=== PATIENT | male | born 1985 | race Caucasian/White ===

== ENCOUNTER 2020-03-29 09:20 | Outpatient (CLI) | payer OTHER, MEDICAID, SELFPAY ==
--- NOTE | 2020-03-29 09:41 | USCV_ITS ---
Stress Echo Marty Stanton Age: 34 Gender: M : 1985 Exam Date: 03/29/2020 11:01 Ordering Phys: Johnny Mckeon MD Technologist: Robi Vitale [place]am [place] [facility] [place]: Chest Pain Rhythm: Sinus Patient History: HTN Cardiac Medications: Angiotensin II receptor víctor Medications in past 24 hours: NONE Contrast: Definity Stress Results Protocol: Alonzo Total dose(mL): Exercise Duration (min:sec): 10:02 METS: 13.5 Resting HR: 66 Resting BP: 137 / 76 Peak HR: 180 Peak BP: 222 / 100 Max Predicted HR: 184 98 % Max Predicted HR Target HR: 156 Double Product: [id number] Stress Summary: The patient's target heart rate was achieved The patient exhibited a hypertensive response with stress BP Response: Abnormal increase in BP during/after stress Reason for Termination: Test terminated after reaching target heart rate (85% max predicted) Cardiac Symptoms: Chest pain, Short of Breath ECG Analysis Resting ECG: Stress ECG: Arrhythmia: MEASUREMENTS (Male/Female) Normal Values FINDINGS Baseline: Normal left ventricle size and function. Estimated ejection fraction 60%. No wall motion abnormality at the rest noted. At peak exercise level:: Left ventricle ejection fraction augmented at peak exercise level without significant wall motion abnormality Recovery: Uneventful, no wall motion abnormality noted. CONCLUSIONS Echocardiographic portion of the stress test is not suggestive of ischemia. EKG segment will be documented separately. Joby Ambrsoio MD (Electronically Signed) Final Date: 30 March 2020 18:10 S
[2020-03-29 09:53] VITALS: BMI 30.1
--- NOTE | 2020-03-29 09:53 | ECG_ITS ---
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 Baseline heart rate was 66 beats per minute. Baseline blood pressure was 137/76 millimeters of mercury. Target heart rate was 184 beats per minute. Maximum heart rate achieved was 180, which was 97 % of the target heart rate. Maximum blood pressure was 222/100 millimeters of mercury. Total exercise time was 10 minutes 2 seconds. Maximum METs achieved was 13.5, maximum VO2 was 47.3. The reason for ending the test was maximum effort achieved. The patient complained of shortness of during the stress test, which then resolved at the end of the test. ELECTROCARDIOGRAM: BASELINE: Sinus rhythm, normal axis, no significant ST-T changes at the baseline noted. EXERCISE: At the peak exercise level, no significant ST-T changes suggestive of ischemia noted. RECOVERY: During the recovery period, heart rate dropped appropriately. No significant ST-T changes in the recovery suggestive of ischemia noted. CONCLUSION: 1. Exercise capacity good. 2. Heart rate response was appropriate. 3. Blood pressure response was hypertensive. 4. Symptoms not suggestive of ischemia. 5. Electrocardiogram portion of the stress test was not suggestive of ischemia. Electronically Signed On 03-31-2020 18:02:39 STEAMFITTER SUPERVISOR by TYRA WILCOX [id number]
[2020-03-29 11:46] VITALS: BP 136/84; PULSE 113
--- NOTE | 2020-03-29 12:16 | PFTS_ITS ---
Date of Study:03/29/20 Date of Dictation: MECHANICS: Forced vital capacity (FVC) is normal. Forced expiratory volume in one second (FEV1) is normal. FEV1/FVC is normal. FLOW VOLUME LOOP: Normal. LUNG VOLUMES: Total lung capacity (TLC) is normal. Residual volume (RV) is mildly reduced. DIFFUSING CAPACITY FOR CARBON MONOXIDE: Normal. INTERPRETATION: The prebronchodilator spirometry is normal. No postbronchodilator spirometry was performed. Lung volumes revealed mild reduction in residual volume which could be nonspecific or early finding in interstitial lung disease. However, this would be unlikely as the gas exchange is completely normal. Gas exchange (DLCO) is normal. MTDD
== END 2020-03-29 09:21 | disposition home or self-care (01) ==
PROVIDERS: PCP Family Medicine; Visit Provider Internal Medicine Pulmonary Disease
DX: R07.9 Chest pain, unspecified (principal); I10 Essential (primary) hypertension
CPT/HCPCS: 93017; 93350; 94010; 94726; 94729

== ENCOUNTER 2020-04-12 20:00 | Outpatient (CLI) | payer OTHER, MEDICAID, SELFPAY | END 2020-04-12 20:01 | disposition home or self-care (01) | LOC: SLEEP 04-13 09:37 | PROVIDERS: PCP Family Medicine; Visit Provider Internal Medicine Pulmonary Disease | DX: G47.33 Obstructive sleep apnea (adult) (pediatric) (principal) | CPT/HCPCS: 95810 ==

== ENCOUNTER 2020-05-03 16:23 | Emergency (ER) | payer BC, MEDICAID, SELFPAY ==
[2020-05-03 16:24] VITALS: BP 133/97; PULSE 100; RESP 18; TEMP 37.4; O2SAT 97; BMI 30.5
[2020-05-03 16:36] VITALS: O2SAT 95
--- NOTE | 2020-05-03 16:41 | ECG_ITS ---
[facility] Test Date: 2020-05-03 Pat Name: Marty Stanton Department: Room: Gender: Male Punch Hand: : 1985 Requested By: Daisy Daugherty I Order Number: [id number] Liseth MD: Key Bejarano M.D. Measurements Intervals [place] Rate: 85 P: 10 WI: 140 QRS: 21 QRSD: 110 T: 30 QT: 370 QTc: 441 Interpretive Statements SINUS RHYTHM INCOMPLETE RIGHT BUNDLE BRANCH BLOCK [90+ ms QRS DURATION, TERMINAL R IN V1/V2, 40+ ms S IN I/aVL/V4/V5/V6] No previous ECG available for comparison Electronically Signed On 05-03-2020 21:39:04 AT RISK SPECIALIST by Key Bejarano M.D. [id number]
--- NOTE | 2020-05-03 16:41 | XR_ITS ---
WS: [id number] Portable AP upright chest, 05/03/2020 Clinical Data: chest pain Comparison: None. Findings: No nodules, masses or effusions are seen. The heart is normal. The pulmonary vascularity is not increased. No pneumonia or pneumothorax is seen. XR/XR chest 1V portable [id number] Impression: Negative chest.
[2020-05-03 16:50] LABS: Basophils # 0.1 10^3/uL (0.0-0.1); Basophils % 0.7 %; Eosinophils # 0.3 10^3/uL (0.0-0.8); Eosinophils % 2.8 %; Hematocrit 46.3 % (42.0-52.0); Hemoglobin 16.2 g/dL (11.7-16.6); Lymphocytes # 2.7 10^3/uL (0.8-4.8); Lymphocytes % 26.7 %; Mean Corpuscular Hemoglobin 32.1 pg (28.0-34.0); Mean Corpuscular Volume 91.7 fL (80-94); Mean Platelet Volume 10.3 fL (7.4-10.4); Monocytes # 1.1 10^3/uL (0.2-0.9); Monocytes % 11.2 %; Neutrophils # 5.78 10^3/uL (1.8-7.7); Neutrophils % 58.1 %; Nucleated Red Blood Cells % 0 %; Platelet Count 299 10^3/cmm (130-400); Red Blood Count 5.05 10^6/uL (4.1-5.3); Red Cell Distribution Width 12.2 % (12.1-15.1)
[2020-05-03 17:15] LABS: Add Urine Microscopic? NO
[2020-05-03 17:19] LABS: INR 0.92 (0.8-1.2)
[2020-05-03 17:22] LABS: D Dimer <= 0.27 ug/mIFEU (0-0.59)
[2020-05-03 17:36] LABS: Bilirubin Urine Neg (Negative); Blood Urine Neg (Negative); Glucose Urine UA Norm (Normal); Ketones Urine Negative (Negative); Leukocyte Esterase Urine Negative (Negative); Nitrate Urine Negative (Negative); Protein Urine Neg (Negative); Urine Appearance Clear (CLEAR); Urine Color Yellow (Yellow); Urobilinogen Urine Norm (Negative); pH Urine 5 (5-7)
[2020-05-03 17:41] LABS: Troponin(5th) Baseline 6 ng/L (0-15)
[2020-05-03 17:45] LABS: Amphetamines Screen Urine Negative (Negative); Barbiturates Screen Urine Negative (Negative); Benzodiazepines Screen Urine Positive (Negative); Cocaine Screen Urine Negative (Negative); Opiate Screen Urine Negative (Negative); PCP Screen Urine Negative (Negative); THC Screen Urine Negative (Negative)
[2020-05-03 17:50] LABS: Alanine Aminotransferase 39 U/L (0-41); Albumin Level 4.4 g/dL (3.5-5.2); Alkaline Phosphatase 80 IU/L (40-130); Anion Gap 14.3 (5-19); Aspartate Amino Transferase 24 U/L (0-40); Blood Urea Nitrogen 7 mg/dL (6-20); Calcium 9.4 mg/dL (8.5-10.5); Carbon Dioxide 29 mmol/L (22-29); Chloride 100 mmol/L (98-107); Globulin 2.9 g/dL (1.3-4.6); Glucose 90 mg/dL (65-115); Lipase 22 U/L (13-60); NT Pro B Type Natriuretic Pept 24 pg/mL (0-125); Osmolality Calculated 288 mOsm/kg (285-295); Potassium 3.3 mmol/L (3.5-5.1); Sodium 140 mmol/L (136-145); Total Bilirubin 0.2 mg/dL (0.15-1.2); Total Protein 7.3 g/dL (6.6-8.7)
--- NOTE | 2020-05-03 18:22 | ED_ITS ---
HPI - SOB/Dyspnea General: Chief Complaint: Shortness of Breath/Dyspnea Stated Complaint: DIFF BREATHING, LETHARGIC Time Seen by Provider: 05/03/20 16:25 Source: patient and EMS Mode of arrival: ambulatory History of Present Illness: HPI Narrative: The patient is a 35 year old male with a history of COPD/asthma, MIKE, who presents to the ED with non specific complaints of generalized weakness, SOB (which appears chronic going through his chart). He says the symptoms have been ongoing for about 3 days. He has been progressively worsening and so he is here to be evaluated. MD elicited complaint: shortness of breath Pertinent past history: COPD Onset (ago): day(s) (3) Timing: constant Severity: moderate Exacerbating factors: nothing Relieving factors: nothing Associated symptoms: Deny abdominal pain, chest congestion, chest pain, cough, diaphoresis, dizziness, extremity pain, fever(s), hemoptysis, lightheadedness, myalgias, nausea, orthopnea, palpitations, paresthesias, polydipsia, polyuria, rash, sense of impending doom, syncope or vomiting Treatment prior to arrival: none Review of Systems General: Reports: 10 or more systems reviewed and unremarkable except in HPI and below Const: Denies: fever(s) or diaphoresis Eyes: Denies: change in vision or blurry vision ENMT: Denies: throat pain, enlarged tonsils, odynophagia, hoarseness, mouth pain or swelling of lips/tongue Card: Denies: chest pain, palpitations, lightheadedness, syncope or orthopnea Resp: Denies: hemoptysis or chest congestion GI: Denies: abdominal pain, nausea or vomiting : Denies: flank pain, dysuria, urinary frequency, urinary urgency or urinary hesitancy Musc: Denies: extremity pain Skin/Breast: Denies: rash, pruritus or erythema Neuro: Denies: dizziness Endo: Denies: polyuria or polydipsia PFSH ED PFSH: Social History Smoking and tobacco status: former smoker Quit status (tobacco): has quit using tobacco Year quit tobacco: dec 30, 2013 Former quit date comment: [id number] Second hand smoke exposure: Yes Smoking risk assessment/counseling performed?: No Alcohol intake: current Alcohol intake frequency: holidays/special occasions only Desire information about alcohol rehabilitation?: No Counseling given: No Lives independently: Yes Household members: spouse Housing: House Marital status: service: No Current occupational status: unemployed History of recent travel: No Current gender identity: Male Physical Exam Const: COMMON NORMALS: no acute distress, average body habitus, patient oriented x3, no limitations, healthy appearing, alert and well nourished HENMT: COMMON NORMALS: normocephalic, atraumatic and moist oral mucous membranes HEAD & SCALP: normocephalic and atraumatic Neck/C-Spine: COMMON NORMALS: no meningeal signs and no JVD Resp: COMMON NORMALS: normal respiratory effort, No retractions, No use of accessory muscles, clear to auscultation bilaterally and percussion normal AUSCULTATION: clear to auscultation bilaterally PERCUSSION: percussion normal Cardio: COMMON NORMALS: no JVD, regular rate, regular rhythm, S1 normal heart sound present, S2 normal heart sound present, No gallops present (Cardio), No clicks present (Cardio), No murmurs present (Cardio), No rub (Cardio) and Peripheral pulses 2+ throughout RATE: regular rate RHYTHM: regular rhythm HEART SOUNDS: S1 normal heart sound present and S2 normal heart sound present PERIPHERAL PULSES: Peripheral pulses 2+ throughout GI: COMMON NORMALS: Normal to inspection, nondistended, normoactive bowel sounds present, Soft to palpation, non-tender, No hepatosplenomegaly present, no masses and no bruits PALPATION: Yes Soft to palpation and Yes No hepatosplenomegaly present Extremity: COMMON NORMALS: normal to inspection, full ROM, capillary refill normal, no calf tenderness and no pedal edema Neuro: COMMON NORMALS: patient oriented x3 SENSORIUM/ORIENTATION: Yes alert MENINGEAL SIGNS: Yes no meningeal signs Skin: COMMON NORMALS: no rashes or lesions noted, no wounds, turgor normal, no jaundice, no petechiae and no mottling GENERAL SKIN EXAM: no rashes or lesions noted and turgor normal Course Reevaluation(s): Reevaluation #1: Discussed his lab and imaging findings with him. Negative HS troponin, ddimer, other labs and CXR negative. No emergent cause for his symptoms. Will discharge him home with no new orders. He voiced understanding and all questions answered. Time: 18:23 Vital Signs: Vital signs: Vital Signs Temperature 99.4 F 05/03/20 16:24 Pulse Rate 85 05/03/20 18:53 Respiratory Rate 17 05/03/20 18:53 Blood Pressure 117/80 05/03/20 18:53 Pulse Oximetry 96 05/03/20 18:53 MDM - SOB/Dyspnea MDM Narrative: Medical decision making narrative: Patient who presents with non specific symptoms of lethargy. Evaluation is unremarkable other than mild hypokalemia and he is discharged home with a prescription for oral potassium. He is to f/u with his PCP. Medical Records: Attestation: I reviewed the patient's medical records. Lab Data: Attestation: I reviewed the patient's lab results. Labs: Lab Results 05/03/20 05/03/20 05/03/20 Range/Units 15:33 15:33 15:33 WBC 10.0 (4.0-10.0) 10^3/ uL RBC 5.05 (4.1-5.3) 10^6/u L Hgb 16.2 (11.7-16.6) g/dL Hct 46.3 (42.0-52.0) % MCV 91.7 (80-94) fL MCH 32.1 (28.0-34.0) pg MCHC 35.0 (30.0-36.0) g/dL RDW 12.2 (12.1-15.1) % Plt Count 299 (130-400) 10^3/c mm MPV 10.3 (7.4-10.4) fL Neut % (Auto) 58.1 % Lymph % (Auto) 26.7 % Greene % (Auto) 11.2 % Eos % (Auto) 2.8 % Baso % (Auto) 0.7 % Neut # (Auto) 5.78 (1.8-7.7) 10^3/u L Lymph # (Auto) 2.7 (0.8-4.8) 10^3/u L Greene # (Auto) 1.1 H (0.2-0.9) 10^3/u L Eos # (Auto) 0.3 (0.0-0.8) 10^3/u L Baso # (Auto) 0.1 (0.0-0.1) 10^3/u L Nucleated RBC % (a uto) 0 % Nucleated RBCs # 0.0 /100WBC PT 12.60 (12.1-14.9) SECO NDS INR 0.92 (0.8-1.2) D-Dimer <= 0.27 (0-0.59) ug/mIFE U Sodium 140 (136-145) mmol/L Potassium 3.3 L (3.5-5.1) mmol/L Chloride 100 (98-107) mmol/L Carbon Dioxide 29 (22-29) mmol/L Anion Gap 14.3 (5-19) BUN 7 (6-20) mg/dL Creatinine 0.9 (0.7-1.2) mg/dL GFR Calculation 95.0 (90-130) mL/min Glucose 90 (65-115) mg/dL Calculated Osmolal ity 288 (285-295) mOsm/k g Calcium 9.4 (8.5-10.5) mg/dL Total Bilirubin 0.2 (0.15-1.2) mg/dL AST 24 (0-40) U/L ALT 39 (0-41) U/L Alkaline Phosphata se 80 (40-130) IU/L Troponin T Baselin e (0-15) ng/L Troponin T 120 Min [place] (0-15) ng/L Delta Troponin T (0-10) ABS# NT-Pro-B Natriuret Pep 24 (0-125) pg/mL Total Protein 7.3 (6.6-8.7) g/dL Albumin 4.4 (3.5-5.2) g/dL Globulin 2.9 (1.3-4.6) g/dL Lipase 22 (13-60) U/L Urine Color (Yellow) Urine Appearance (CLEAR) Urine pH (5-7) Ur Specific Gravit y (1.005-1.030) Urine Protein (Negative) Urine Glucose (UA) (Normal) Urine Ketones (Negative) Urine Blood (Negative) Urine Nitrate (Negative) Urine Bilirubin (Negative) Urine Urobilinogen (Negative) mg/dL Ur Leukocyte Crystal ase (Negative) Urine Opiates Scre en (Negative) ng/mL Ur Barbiturates Sc reen (Negative) ng/mL Ur Phencyclidine S crn (Negative) ng/mL Ur Amphetamines Sc reen (Negative) ng/mL U Benzodiazepines Scrn (Negative) ng/mL Urine Cocaine Scre en (Negative) ng/mL U Marijuana (THC) Screen (Negative) ng/mL 05/03/20 05/03/20 05/03/20 Range/Units 15:33 17:04 17:04 WBC (4.0-10.0) 10^3/ uL RBC (4.1-5.3) 10^6/u L Hgb (11.7-16.6) g/dL Hct (42.0-52.0) % MCV (80-94) fL MCH (28.0-34.0) pg MCHC (30.0-36.0) g/dL RDW (12.1-15.1) % Plt Count (130-400) 10^3/c mm MPV (7.4-10.4) fL Neut % (Auto) % Lymph % (Auto) % Greene % (Auto) % Eos % (Auto) % Baso % (Auto) % Neut # (Auto) (1.8-7.7) 10^3/u L Lymph # (Auto) (0.8-4.8) 10^3/u L Greene # (Auto) (0.2-0.9) 10^3/u L Eos # (Auto) (0.0-0.8) 10^3/u L Baso # (Auto) (0.0-0.1) 10^3/u L Nucleated RBC % (a uto) % Nucleated RBCs # /100WBC PT (12.1-14.9) SECO NDS INR (0.8-1.2) D-Dimer (0-0.59) ug/mIFE U Sodium (136-145) mmol/L Potassium (3.5-5.1) mmol/L Chloride (98-107) mmol/L Carbon Dioxide (22-29) mmol/L Anion Gap (5-19) BUN (6-20) mg/dL Creatinine (0.7-1.2) mg/dL GFR Calculation (90-130) mL/min Glucose (65-115) mg/dL Calculated Osmolal ity (285-295) mOsm/k g Calcium (8.5-10.5) mg/dL Total Bilirubin (0.15-1.2) mg/dL AST (0-40) U/L ALT (0-41) U/L Alkaline Phosphata se (40-130) IU/L Troponin T Baselin e 6 (0-15) ng/L Troponin T 120 Min [place] (0-15) ng/L Delta Troponin T (0-10) ABS# NT-Pro-B Natriuret Pep (0-125) pg/mL Total Protein (6.6-8.7) g/dL Albumin (3.5-5.2) g/dL Globulin (1.3-4.6) g/dL Lipase (13-60) U/L Urine Color Yellow (Yellow) Urine Appearance Clear (CLEAR) Urine pH 5 (5-7) Ur Specific Gravit y 1.020 (1.005-1.030) Urine Protein Neg (Negative) Urine Glucose (UA) Norm (Normal) Urine Ketones Negative (Negative) Urine Blood Neg (Negative) Urine Nitrate Negative (Negative) Urine Bilirubin Neg (Negative) Urine Urobilinogen Norm (Negative) mg/dL Ur Leukocyte Crystal ase Negative (Negative) Urine Opiates Scre en Negative (Negative) ng/mL Ur Barbiturates Sc reen Negative (Negative) ng/mL Ur Phencyclidine S crn Negative (Negative) ng/mL Ur Amphetamines Sc reen Negative (Negative) ng/mL U Benzodiazepines Scrn Positive H (Negative) ng/mL Urine Cocaine Scre en Negative (Negative) ng/mL U Marijuana (THC) Screen Negative (Negative) ng/mL 05/03/20 Range/Units 17:57 WBC (4.0-10.0) 10^3/ uL RBC (4.1-5.3) 10^6/u L Hgb (11.7-16.6) g/dL Hct (42.0-52.0) % MCV (80-94) fL MCH (28.0-34.0) pg MCHC (30.0-36.0) g/dL RDW (12.1-15.1) % Plt Count (130-400) 10^3/c mm MPV (7.4-10.4) fL Neut % (Auto) % Lymph % (Auto) % Greene % (Auto) % Eos % (Auto) % Baso % (Auto) % Neut # (Auto) (1.8-7.7) 10^3/u L Lymph # (Auto) (0.8-4.8) 10^3/u L Greene # (Auto) (0.2-0.9) 10^3/u L Eos # (Auto) (0.0-0.8) 10^3/u L Baso # (Auto) (0.0-0.1) 10^3/u L Nucleated RBC % (a uto) % Nucleated RBCs # /100WBC PT (12.1-14.9) SECO NDS INR (0.8-1.2) D-Dimer (0-0.59) ug/mIFE U Sodium (136-145) mmol/L Potassium (3.5-5.1) mmol/L Chloride (98-107) mmol/L Carbon Dioxide (22-29) mmol/L Anion Gap (5-19) BUN (6-20) mg/dL Creatinine (0.7-1.2) mg/dL GFR Calculation (90-130) mL/min Glucose (65-115) mg/dL Calculated Osmolal ity (285-295) mOsm/k g Calcium (8.5-10.5) mg/dL Total Bilirubin (0.15-1.2) mg/dL AST (0-40) U/L ALT (0-41) U/L Alkaline Phosphata se (40-130) IU/L Troponin T Baselin e (0-15) ng/L Troponin T 120 Min [place] 6.00 (0-15) ng/L Delta Troponin T 0 (0-10) ABS# NT-Pro-B Natriuret Pep (0-125) pg/mL Total Protein (6.6-8.7) g/dL Albumin (3.5-5.2) g/dL Globulin (1.3-4.6) g/dL Lipase (13-60) U/L Urine Color (Yellow) Urine Appearance (CLEAR) Urine pH (5-7) Ur Specific Gravit y (1.005-1.030) Urine Protein (Negative) Urine Glucose (UA) (Normal) Urine Ketones (Negative) Urine Blood (Negative) Urine Nitrate (Negative) Urine Bilirubin (Negative) Urine Urobilinogen (Negative) mg/dL Ur Leukocyte Crystal ase (Negative) Urine Opiates Scre en (Negative) ng/mL Ur Barbiturates Sc reen (Negative) ng/mL Ur Phencyclidine S crn (Negative) ng/mL Ur Amphetamines Sc reen (Negative) ng/mL U Benzodiazepines Scrn (Negative) ng/mL Urine Cocaine Scre en (Negative) ng/mL U Marijuana (THC) Screen (Negative) ng/mL Imaging Data^: CXR: Attestation: I personally reviewed and interpreted this imaging study as follows: My impression: no acute findings EKG Data^: EKG 1: Attestation: I personally reviewed and interpreted this EKG as follows: EKG Interpretation Date: 05/03/20 EKG interpretation time: 17:38 Prior EKG tracings: not available for review Interpretation: Normal sinus rhythm. Heart rate 85 bpm. Incomplete right bundle branch block. No ST changes. Discharge Plan Discharge Patient Disposition: Home Clinical Impression: Lethargy, Acute hypokalemia Condition: Stable Prescriptions: New potassium chloride 20 mEq tablet extended release 20 meq PO BID Qty: 6 RF: 0 Continued losartan 25 mg tablet 25 mg PO BID@18 RF: 0 zolpidem 10 mg tablet 10 mg PO BEDTIME@2200 RF: 0 montelukast 10 mg tablet 10 mg PO BID@18 RF: 0 nortriptyline 50 mg capsule 50 mg PO BID@,18 RF: 0 omeprazole 40 mg capsule,delayed release(DR/EC) 40 mg PO BID@,18 RF: 0 tizanidine 2 mg capsule 15 mg PO BID PRN (Reason: Muscle Pain) RF: 0 guaifenesin [Mucinex] 600 mg tablet extended release 12hr 600 mg PO DAILY@18 RF: 0 budesonide-formoterol [Symbicort] 160-4.5 mcg/actuation HFA aerosol inhaler 2 puff INHALATION BID Qty: 10.2 RF: 3 albuterol sulfate [ProAir HFA] 90 mcg/actuation HFA aerosol inhaler 2 puff INHALATION Q6H PRN (Reason: shortness of breath or wheezing) Qty: 18 RF: 3 Discharge Orders: Discharge ED (Routine); Ordered 05/03/20 Ordered By: Daisy Daugherty Referrals: Sánchez Orourke [Primary Care Provider] - 1-3 days Discharge Diet: Usual diet Discharge Activity: Increase activity as tolerated Patient Instructions: Hypokalemia (ED), Weakness (ED) Activity Restrictions/Additional Instructions: Return for any new or worsening symptoms. Follow up with your primary care provider within 3 days. Continue your home medications. Stand Alone Forms: Work/School Release Coding Level of Care Code ED [employer] Secretary for Chg Fwd Exam Comprehensive
[2020-05-03 18:40] LABS: Troponin 5 2HR Delta 0 ABS# (0-10)
[2020-05-03 18:53] VITALS: BP 117/80; PULSE 85; RESP 17; O2SAT 96
== END 2020-05-03 18:53 | disposition home or self-care (01) ==
PROVIDERS: Emergency Provider Family Medicine; PCP Family Medicine
DX: R53.83 Other fatigue (principal); E87.6 Hypokalemia; Z87.891 Personal history of nicotine dependence
CPT/HCPCS: 12345; 71045; 80053; 80306; 81003; 83690; 83880; 84484; 85025; 85378; 85610; 93005; 99283; 99284

== ENCOUNTER 2020-05-26 14:11 | Outpatient (CLI) | payer BC, MEDICAID, SELFPAY ==
[2020-05-26 15:41] LABS: Anion Gap 13.4 (5-19); Blood Urea Nitrogen 12 mg/dL (6-20); Calcium 9.1 mg/dL (8.5-10.5); Carbon Dioxide 25 mmol/L (22-29); Chloride 103 mmol/L (98-107); Glomerular Filtration Rate 108.8 mL/min (90-130); Glucose 114 mg/dL (65-115); Osmolality Calculated 287 mOsm/kg (285-295); Potassium 3.4 mmol/L (3.5-5.1); Sodium 138 mmol/L (136-145)
[2020-05-27 14:08] LABS: Anti-Double Strand DNA AB <1 IU/mL; Jo-1 Antibody <1.0 NEG AI (<1.0 NEG); SM/RNP Antibodies <1.0 NEG AI (<1.0 NEG); SS-B/LA IGG <1.0 NEG AI (<1.0 NEG); Scleroderma Ab(Scl-70) Ab <1.0 NEG AI (<1.0 NEG); Ss-A/Ro Igg <1.0 NEG AI (<1.0 NEG)
== END 2020-05-26 14:12 | disposition home or self-care (01) ==
LOC: LAB 14:16
PROVIDERS: PCP Nurse Practitioner Family; Visit Provider Internal Medicine Pulmonary Disease
DX: J98.4 Other disorders of lung (principal); R32 Unspecified urinary incontinence
CPT/HCPCS: 36415; 80048; 81003; 84182; 86225; 86235; 87086

== ENCOUNTER 2020-06-15 13:36 | Outpatient (CLI) | payer BC, MEDICAID, SELFPAY ==
--- NOTE | 2020-06-15 13:00 | CT_ITS ---
WS: [id number] CT CHEST high-resolution. HISTORY: Restrictive lung disease TECHNIQUE: High-resolution supine and prone, inspiration and expiration imaging performed. All CT sca ns at [facility] use at least one of these dose optimization techniques: automated exposur e control; mA and/or kV adjustment per patient size (includes targeted exams where dose is matched to clinical indication); or iterative reconstruction. CONTRAST: None DLP: 1718.18 mGycm COMPARISON: None available. Lungs expand well on inspiration. There is mild motion artifact as the patient was unable to hold his breath. Breathing artifact is predominantly on all images. During expiration there is volume loss wh ich is symmetric. No focal air trapping. On the prone inspiration film there is much better aeration at the lung bases and posteriorly. No air trapping, bronchiectasis or pneumonia. Peripheral airways a re normal. No narrowing of the trachea. No endobronchial lesions appreciated. Heart is normal size. No pericardial or pleural effusion. Mediastinum and otilia: No mediastinum or hilar adenopathy. Vessels: Normal size aortic and pulmonary artery. No coronary artery calcifications. Chest wall and lower neck: No soft tissue masses. Upper abdomen: Diffuse hepatic steatosis. No adrenal mass. Osseous structures: No destructive process. CT/CT chest wo con [id number] IMPRESSION: 1. This study is compromised by breathing artifact. 2. No bronchiectasis or peripheral interstitial airways disease. No air trappi ng. 3. No pneumonia or adenopathy. 4. Hepatic steatosis.
== END 2020-06-15 13:37 | disposition home or self-care (01) ==
LOC: RADWPI 13:39
PROVIDERS: PCP Nurse Practitioner Family; Visit Provider Internal Medicine Pulmonary Disease
DX: J98.4 Other disorders of lung (principal); K76.0 Fatty (change of) liver, not elsewhere classified
CPT/HCPCS: 71250; 81003

== ENCOUNTER 2020-07-07 20:00 | Outpatient (CLI) | payer BC, MEDICAID, SELFPAY | END 2020-07-07 20:01 | disposition home or self-care (01) | LOC: SLEEP 07-08 09:14 | PROVIDERS: PCP Nurse Practitioner Family; Visit Provider Internal Medicine Pulmonary Disease | DX: G47.33 Obstructive sleep apnea (adult) (pediatric) (principal) | CPT/HCPCS: 95811 ==

== ENCOUNTER → 2020-08-01 09:39 | Outpatient (BNVA) | payer BC, MEDICAID, SELFPAY | PROVIDERS: PCP Nurse Practitioner Family; Visit Provider Psychiatry & Neurology Neurology | DX: R20.2 Paresthesia of skin (principal); G56.03 Carpal tunnel syndrome, bilateral upper limbs; Z87.891 Personal history of nicotine dependence | CPT/HCPCS: 95885; 95910 ==

== ENCOUNTER → 2020-08-03 15:37 | Outpatient (BNVA) | payer BC, MEDICAID, SELFPAY | PROVIDERS: PCP Nurse Practitioner Family; Visit Provider Urology | DX: R39.9 Unspecified symptoms and signs involving the genitourinary system (principal); N48.1 Balanitis; N47.1 Phimosis | CPT/HCPCS: 81003 ==

== ENCOUNTER → 2020-09-05 10:29 | Outpatient (BNVA) | payer BC, MEDICAID, SELFPAY | PROVIDERS: PCP Nurse Practitioner Family; Referring Provider Nurse Practitioner Family; Visit Provider Specialist | DX: G56.01 Carpal tunnel syndrome, right upper limb (principal); G56.02 Carpal tunnel syndrome, left upper limb | CPT/HCPCS: 73110 ==

== ENCOUNTER 2020-09-16 05:25 | Day surgery (SDC) | payer BC, MEDICAID, SELFPAY ==
[2020-09-15 16:48] VITALS: BMI 31.6
[2020-09-16 06:08] VITALS: BP 142/81; PULSE 73; RESP 18; TEMP 36.3; O2SAT 97
[2020-09-16] MEDS: CELEcoxib 200 mg Capsule 400 MG PO (06:28)
[2020-09-16] MEDS: sodium chloride 0.9% 1,000 ML 30 ML IV (06:28)
[2020-09-16] MEDS: acetaminophen 1,000 MG/100 ML PIGGYBACK 400 MG IV (06:28)
--- NOTE | 2020-09-16 06:38 | ANES.PREANE2 ---
Pre-Anesthetic Assessment Pre-Anesthetic Assessment: Height/Weight: Height 1.75 m Weight 97.069 kg Temp Pulse Resp BP Pulse Ox 97.4 F L 73 18 142/81 97 09/16/20 06:08 09/16/20 06:08 09/16/20 06:08 09/16/20 06:08 09/16/20 06:08 Preop Diagnosis: Left carpal tunnel syndrome Proposed Procedure: Operation Date: 09/16/20 07:00 Proposed Procedures p Carpal Tunnel Release 41701 G65.01(Left) - Nisha Frazier MD Familial anesthetic complications: none Was Beta Rimma taken within 24 hours: Yes Was Clonidine taken within 24 hours: N/A Last intake: Intake Last Liquid Date 09/15/20 Last Liquid Time 23:00 Last Solid Date 09/15/20 Last Solid Time 16:00 Social: Social History: No alcohol and No tobacco Comment: former smoker Exam: Pre-Anes Outpt Exam: alert, oriented x 3, clear to auscultation bilaterally and regular rate & rhythm Airway: Cervical ROM: WNL MP: 4 Dentition: Other (poor dentition per patient) Additional comments: Small mouth opening, large neck, potential difficult airway Pulmonary: Pulmonary: Asthma, COPD, [place] and Sleep apnea CV/HEM: CV/HEM: Angina (Stable) (cardiac workup includes negative stress test and normal echo - 2020) Hepatic: Comments: fatty liver GI: GI: GERD Metabolic: Metabolic: Thyroid Anesthetic Plan: ASA status: 3 Anesthesia: MAC and Regional (specify below) (tyshawn block) Risk of > 500 ml blood loss (7ml/kg in children): No Meds/Allergies Current Medications: Current Medications Generic Name Dose Route Start Last Admin Trade Name Freq PRN Reason Stop Dose Admin Sodium Chloride 1,000 mls @ 30 ml s/hr 09/16/20 05:45 09/16/20 06:28 Sodium Chloride 0.9% IV 09/17/20 05:44 30 mls/hr .Q24H [place] Administration PFSH Anesthesia PFSH: Medical History Acquired phimosis of penis Balanitis Lower urinary tract symptoms (LUTS) Urinary incontinence Family History Family/Other CAD (coronary artery disease) Hypertension Lung disease Social History Smoking and tobacco status: former smoker Quit status (tobacco): has quit using tobacco Year quit tobacco: dec 30, 2013 Former quit date comment: [id number] Second hand smoke exposure: Yes Smoking risk assessment/counseling performed?: No Alcohol intake: current Alcohol intake frequency: holidays/special occasions only Desire information about alcohol rehabilitation?: No Counseling given: No Lives independently: Yes Household members: spouse Housing: House Marital status: service: No Current occupational status: employed Pets and animals: No History of recent travel: No Current gender identity: Male Data Anesthesia Cardiac Studies: No Data to Display
--- NOTE | 2020-09-16 06:52 | W.PM.OPSUD ---
Surgery/Procedure H&P Update DATE OF PROCEDURE: September 16, 2020 DATE H&P PERFORMED: 09/05/20 H&P UPDATE INFORMATION: I have reviewed H&P completed within last 30 days, I have examined patient prior to procedure, No changes to prior documentation and H&P is in [facility] EMR on date indicated PREOP DIAGNOSIS: Left carpal tunnel syndrome PLANNED PROCEDURE: Operation Date: 09/16/20 07:00 Proposed Procedures p Left Carpal Tunnel Release 21644 G65.01(Left) - Nisha Frazier MD Related Problem List Diagnoses (1) Carpal tunnel syndrome, left:
[2020-09-16 07:51] VITALS: BP 150/84; PULSE 91; RESP 16; TEMP 36.2; O2SAT 95
[2020-09-16 07:55] VITALS: BP 157/99; PULSE 88; RESP 16; O2SAT 93
[2020-09-16 08:00] VITALS: BP 176/107; PULSE 78; RESP 16; TEMP 36.6; O2SAT 94
[2020-09-16 08:09] VITALS: BP 157/96; PULSE 86; RESP 16; TEMP 36.6; O2SAT 95
--- NOTE | 2020-09-16 08:13 | PM.OP ---
Operative Report Date of procedure: September 16, 2020 Pre-op Diagnosis: Left carpal tunnel syndrome Post-op diagnosis: same Procedure Done: Left carpal tunnel release Specimens removed/disposition: None Pathology: none sent Surgeon: Nisha Frazier Transportation Agent: None Anesthesia: MAC (With Juni block) Estimated blood loss (mL): 2 Tourniquet time (min): 35 Tourniquet time: At 250 mmHg IV fluids (mL): 400 Urine output (mL): 0 Urine output: No Bean Complications: None Findings: Compression across the carpal canal Condition: stable Disposition: PACU (Then to same-day surgery for discharge to home) Brief History: This 35-year-old presented with he had significant symptoms secondary to his carpal tunnel including numbness and tingling in the hands. He was awakening at night. He had difficulties with activities of daily living. After discussion, the patient wished to proceed with surgical intervention. He is planning on bilateral carpal tunnel surgeries, however, the left was his worst. Therefore, the left carpal tunnel was addressed first. Procedure: The patient was brought to the operating theater. The patient had a [place] block with MAC. The tourniquet was elevated to 250 mmHg for a total tourniquet time of 35 minutes. The patient was also given Ancef 2 g preoperatively. The arm was then prepped and draped with DuraPrep in usual fashion with the arm draped free. A surgical pause was performed. At the time, the surgical pause, we confirmed the site and side of surgery. We also confirmed the patient's identity, appropriate and timely administration of preoperative antibiotics and preoperative surgical markings. An incision was then made along the thenar crease. The incision crossed the wrist joint in a curvilinear fashion. Dissection continued through skin and soft tissues using a scalpel. The palmaris longus was identified along with the transverse carpal ligament. Each of these was released carefully to avoid injury to the median nerve. We were able to dissect gently into the carpal canal which was noted to be quite tight with significant compression across the median nerve. The nerve was visualized and was an hourglass shape. The canal was subsequently palpated to assure there was no bony encroachment upon the canal. The canal was then palpated distally and proximally to assure that my small finger was passed easily without impingement. Finding this to be so, attention was directed to closure. The wound was irrigated with ropivacaine plain. It was then closed with 3-0 nylon in an interrupted mattress fashion. Sterile dressing was then placed consisting of Dermabond, OpSite, fluffed fluffs, sterile soft roll, a volar splint, and an Johann wrap. The tourniquet was released after 35 minutes. There were no complications. There were no specimens. The procedure was well tolerated. Plan is the patient will be discharged home. Associated Problem List Diagnoses (1) Carpal tunnel syndrome, left:
[2020-09-16 08:23] VITALS: BP 154/103; PULSE 84; RESP 18; O2SAT 94
--- NOTE | 2020-09-16 13:13 | ANE.PACU2 ---
Inpatient post-anesthesia follow up: Airway intact: Yes Vital signs: Temperature 97.8 F Pulse Rate 84 Respiratory Rate 18 Blood Pressure 154/103 Pulse Oximetry 94 Oxygen Delivery Me thod Room Air Oxygen Flow Rate Fraction of Inspir ed Oxygen Hydration adequate: Yes Nausea and vomiting: No Pain level: 2 Mental status: Baseline
== END 2020-09-16 08:48 | disposition home or self-care (01) ==
PROVIDERS: PCP Nurse Practitioner Family; Visit Provider Specialist
PROC: (CPT 64721; principal; 2020-09-16 07:00)
DX: G56.02 Carpal tunnel syndrome, left upper limb (principal); J44.9 Chronic obstructive pulmonary disease, unspecified; K21.9 Gastro-esophageal reflux disease without esophagitis; Z87.891 Personal history of nicotine dependence
CPT/HCPCS: 64721; 96365; J0690; J2704; J3010; J3490; J7030

== ENCOUNTER → 2020-09-23 08:59 | Outpatient (BNVA) | payer BC, MEDICAID, SELFPAY | PROVIDERS: PCP Nurse Practitioner Family; Visit Provider Urology | DX: N48.1 Balanitis (principal) | CPT/HCPCS: 88305 ==

== ENCOUNTER 2020-10-03 10:26 | Outpatient (CLI) | payer BC, MEDICAID, SELFPAY | END 2020-10-03 10:27 | disposition home or self-care (01) | LOC: SPT 10:27 | PROVIDERS: PCP Nurse Practitioner Family; Visit Provider Specialist | DX: Z46.89 Encounter for fitting and adjustment of other specified devices (principal); G56.01 Carpal tunnel syndrome, right upper limb; G56.02 Carpal tunnel syndrome, left upper limb | CPT/HCPCS: L3908 ==

== ENCOUNTER 2020-10-04 06:17 | Day surgery (SDC) | payer BC, MEDICAID, SELFPAY ==
[2020-10-03 16:13] VITALS: BMI 32.8
--- NOTE | 2020-10-04 06:54 | P.HPUD_ITS ---
Surgery/Procedure H&P Update DATE OF PROCEDURE: October 04, 2020 DATE H&P PERFORMED: 10/03/20 H&P UPDATE INFORMATION: I have reviewed H&P completed within last 30 days, I have examined patient prior to procedure, No changes to prior documentation and H&P is in [facility] EMR on date indicated PREOP DIAGNOSIS: Right carpal tunnel syndrome PLANNED PROCEDURE: Operation Date: 10/04/20 08:20 Proposed Procedures p Right Carpal Tunnel Release 45034 G56.00(Right) - Nisha Frazier MD Related Problem List Diagnoses (1) Carpal tunnel syndrome on right:
[2020-10-04 07:12] VITALS: BP 125/84; PULSE 72; RESP 18; TEMP 36.6; O2SAT 99
[2020-10-04] MEDS: sodium chloride 0.9% 1,000 ML 30 ML IV (07:24)
[2020-10-04] MEDS: acetaminophen 1,000 MG/100 ML PIGGYBACK 400 MG IV (07:28)
--- NOTE | 2020-10-04 07:28 | ANES.PREANE2 ---
Pre-Anesthetic Assessment Pre-Anesthetic Assessment: Height/Weight: Height 1.75 m Weight 100.698 kg Temp Pulse Resp BP Pulse Ox 97.9 F 72 18 125/84 99 10/04/20 07:12 10/04/20 07:12 10/04/20 07:12 10/04/20 07:12 10/04/20 07:12 Preop Diagnosis: Right carpal tunnel syndrome Proposed Procedure: Operation Date: 10/04/20 08:20 Proposed Procedures p Right Carpal Tunnel Release [id number] G56.00(Right) - Nisha Frazier MD Was Beta Rimma taken within 24 hours: N/A Was Clonidine taken within 24 hours: N/A Last intake: Intake Last Liquid Date 10/04/20 Last Liquid Time 05:30 Last Solid Date 10/03/20 Last Solid Time 19:00 Social: Social History: Tobacco and No alcohol Pulmonary: Pulmonary: Asthma, COPD, [place] and Sleep apnea Anesthetic Plan: ASA status: 3 Anesthesia: MAC and Regional (specify below) (Juni larkin) Risk of > 500 ml blood loss (7ml/kg in children): No PFSH Anesthesia PFSH: Medical History Acquired phimosis of penis Balanitis Lower urinary tract symptoms (LUTS) Urinary incontinence Surgical History Status post routine circumcision Family History Family/Other CAD (coronary artery disease) Hypertension Lung disease Social History Smoking and tobacco status: former smoker Quit status (tobacco): has quit using tobacco Year quit tobacco: dec 30, 2013 Former quit date comment: [id number] Second hand smoke exposure: Yes Smoking risk assessment/counseling performed?: No Alcohol intake: current Alcohol intake frequency: holidays/special occasions only Desire information about alcohol rehabilitation?: No Counseling given: No Lives independently: Yes Household members: spouse Housing: House Marital status: service: No Current occupational status: employed Pets and animals: No History of recent travel: No Current gender identity: Male Data Anesthesia Cardiac Studies: No Data to Display
[2020-10-04] MEDS: CELEcoxib 200 mg Capsule 400 MG PO (07:29)
[2020-10-04 08:56] VITALS: BP 159/95; PULSE 83; RESP 16; TEMP 36.6; O2SAT 95
--- NOTE | 2020-10-04 08:59 | PM.OP ---
Operative Report Date of procedure: October 04, 2020 Pre-op Diagnosis: Right carpal tunnel syndrome Post-op diagnosis: same Post-op Findings: Severe compression across the median nerve Procedure Done: Right carpal tunnel release Implants: None Specimens removed/disposition: None Pathology: none sent Surgeon: Nisha Frazier Tariff Expert: None Anesthesia: MAC (With [place] block, ASA 3) Estimated blood loss (mL): 3 Tourniquet time (min): 39 Tourniquet time: At 250 mmHg IV fluids (mL): 500 Urine output (mL): 0 Urine output: No Bean Complications: None Findings: Significant compression across the carpal canal hourglass deformity to the median nerve. Condition: stable Disposition: PACU (Then to same-day surgery) Brief History: This 35-year-old presented with he had significant symptoms secondary to his carpal tunnel including numbness and tingling in the hands. He was awakening at night. He had difficulties with activities of daily living. After discussion, the patient wished to proceed with surgical intervention. He is planning on bilateral carpal tunnel surgeries, however, the left was his worst. Therefore, the left carpal tunnel was addressed first. Procedure: The patient was brought to the operating theater. The patient had a Juni block with MAC. The tourniquet was elevated to 250 mmHg for a total tourniquet time of 39 minutes. The patient was also given Ancef 2 g preoperatively. The arm was then prepped and draped with DuraPrep in usual fashion with the arm draped free. A surgical pause was performed. At the time, the surgical pause, we confirmed the site and side of surgery. We also confirmed the patient's identity, appropriate and timely administration of preoperative antibiotics and preoperative surgical markings. An incision was then made along the thenar crease. The incision crossed the wrist joint in a curvilinear fashion. Dissection continued through skin and soft tissues using a scalpel. The palmaris longus was identified along with the transverse carpal ligament. Each of these was released carefully to avoid injury to the median nerve. We were able to dissect gently into the carpal canal which was noted to be quite tight with significant compression across the median nerve. The nerve was visualized and was an hourglass shape. The canal was subsequently palpated to assure there was no bony encroachment upon the canal. The canal was then palpated distally and proximally to assure that my small finger was passed easily without impingement. Finding this to be so, attention was directed to closure. The wound was irrigated with ropivacaine plain. It was then closed with 3-0 nylon in an interrupted mattress fashion. Sterile dressing was then placed consisting of Dermabond, OpSite, fluffed fluffs, sterile soft roll, a volar splint, and an Johann wrap. The tourniquet was released after 39 minutes. There were no complications. There were no specimens. The procedure was well tolerated. Plan is the patient will be discharged home. Associated Problem List Diagnoses (1) Carpal tunnel syndrome on right:
[2020-10-04 09:00] VITALS: BP 154/99; PULSE 83; RESP 16; O2SAT 95
[2020-10-04 09:11] VITALS: BP 159/99; PULSE 73; RESP 17; TEMP 36.2; O2SAT 97
--- NOTE | 2020-10-04 09:16 | SUR.PHASEI ---
0945 PT AWAKE ALERT DENIES PAIN AND NAUSEA, PT REQUESTS SPRITE TO DRINK , HAND DRESSING D/I DISTAL FINGERS PINK WARM CAP REFILL LESS THAN 3 SECONDS. HANDOFF AT BEDSIDE WITH RN IN OPS.
[2020-10-04] MEDS: ondansetron 2 mg/ML SDV 2 mL 4 MG IVP (09:39)
[2020-10-04] MEDS: HYDROcodone-acetaminophen 5-325 mg Tablet 1 TAB PO (09:41)
[2020-10-04 09:49] VITALS: BP 159/84; PULSE 72; RESP 16; TEMP 36.2; O2SAT 98
--- NOTE | 2020-10-04 11:35 | ANE.PACU2 ---
Inpatient post-anesthesia follow up: Airway intact: Yes Vital signs: Temperature 97.2 F Pulse Rate 72 Respiratory Rate 16 Blood Pressure 159/84 Pulse Oximetry 98 Oxygen Delivery Me thod Room Air Oxygen Flow Rate Fraction of Inspir ed Oxygen Hydration adequate: Yes Nausea and vomiting: No Pain level: 1 Mental status: Baseline
== END 2020-10-04 09:56 | disposition home or self-care (01) ==
PROVIDERS: PCP Nurse Practitioner Family; Visit Provider Specialist
PROC: (CPT 64721; principal; 2020-10-04 08:10)
DX: G56.01 Carpal tunnel syndrome, right upper limb (principal); J44.9 Chronic obstructive pulmonary disease, unspecified; G47.30 Sleep apnea, unspecified; Z87.891 Personal history of nicotine dependence
CPT/HCPCS: 64721; J0690; J2405; J2704; J3010; J3490; J7030

== ENCOUNTER → 2021-05-18 11:24 | Outpatient (BNVA) | payer BC, MEDICAID, SELFPAY | PROVIDERS: PCP Nurse Practitioner Family; Visit Provider Nurse Practitioner Family | DX: R14.0 Abdominal distension (gaseous) (principal); R19.7 Diarrhea, unspecified | CPT/HCPCS: 74018 ==

== ENCOUNTER 2021-07-07 13:44 | Outpatient (CLI) | payer BC, MEDICAID, SELFPAY ==
--- NOTE | 2021-07-07 14:24 | US_ITS ---
WS: [id number] ULTRASOUND ABDOMEN LIMITED CLINICAL INFORMATION: ELEVATED LIVER ENZYMES COMPARISON: None. FINDINGS: Liver Size: Enlarged Craniocaudal length: 18.7 cm. Echogenicity: Coarse dense Surface nodularity: None. Mass (size and location): None. Bile ducts Intrahepatic ducts: Normal. Common bile duct diameter: 0.5 cm. Gallbladder Normal. Gallstones: None. Gallbladder sludge: None. Gallbladder wall thickening: None. Pericholecystic fluid: None. Sonographic Klein sign: Absent. Pancreas Tail not well seen. Otherwise normal as visualized. Right kidney: Normal. Hydronephrosis: None. Size: 9.9 cm x 6.2 cm x 5.7 cm. Abdominal aorta and IVC Visualized portions are normal. Ascites: None. US/US liver [id number] IMPRESSION: 1. Hepatomegaly with dense coarse hepatic echotexture likely due to diffuse fa tty infiltration versus diffuse hepatocellular disease. Recommend correlation w ith liver function tests. 2. Normal gallbladder. No cholelithiasis. Normal common bile duct. 3. No hydronephrosis in RIGHT kidney.
== END 2021-07-07 13:45 | disposition home or self-care (01) ==
PROVIDERS: PCP Nurse Practitioner Family; Visit Provider Nurse Practitioner Family
DX: R74.01 Elevation of levels of liver transaminase levels (principal); R16.0 Hepatomegaly, not elsewhere classified
CPT/HCPCS: 76705

== ENCOUNTER → 2021-09-20 09:19 | Outpatient (BNVA) | payer BC, MEDICAID, SELFPAY | PROVIDERS: PCP Nurse Practitioner Family; Visit Provider Specialist | DX: M65.4 Radial styloid tenosynovitis [de Quervain] (principal); G56.02 Carpal tunnel syndrome, left upper limb | CPT/HCPCS: 73110; 99214 ==

== ENCOUNTER → 2021-11-15 09:35 | Outpatient (BNVA) | payer BC, MEDICAID, SELFPAY | PROVIDERS: PCP Nurse Practitioner Family; Visit Provider Specialist | DX: M65.4 Radial styloid tenosynovitis [de Quervain] (principal) | CPT/HCPCS: 99214 ==

== ENCOUNTER 2021-12-01 09:47 | Day surgery (SDC) | payer BC, MEDICAID, SELFPAY ==
[2021-11-30 10:51] VITALS: BMI 32.8
[2021-12-01 10:18] VITALS: BP 138/85; PULSE 63; RESP 17; TEMP 36.6; O2SAT 97
--- NOTE | 2021-12-01 10:39 | ANES.PREANE2 ---
Pre-Anesthetic Assessment Height/Weight: Height 1.75 m Weight 100.698 kg Temp Pulse Resp BP Pulse Ox O2 Del Method 97.8 F 63 17 138/85 97 12/01/21 10:18 12/01/21 10:18 12/01/21 10:18 12/01/21 10:18 12/01/21 10:18 12/01/21 10:18 Preop Diagnosis: Left de Quervain's tenosynovitis Operation Date: 12/01/21 12:40 Proposed Procedures p LEFT DE QUERVAINS RELEASE 14547,M65.4(Left) - Nisha Frazier MD Familial anesthetic complications: None Was Beta Rimma taken within 24 hours: Yes Was Clonidine taken within 24 hours: N/A Last intake: Intake Last Liquid Date 12/01/21 Last Liquid Time 04:00 Last Solid Date 11/30/21 Last Solid Time 21:00 Social Tobacco and No alcohol Exam alert, oriented x 3, clear to auscultation bilaterally and regular rate & rhythm Airway Mallampati: Class IV Dentition: other (poor dentition) Pulmonary Asthma, Chronic Obstructive Pulmonary Disease and Sleep Apnea Hepatic fatty liver Metabolic Thyroid Disease Anesthetic Plan ASA status: 3 Anesthesia: General Risk of > 500 ml blood loss (7ml/kg in children): No Medications/Allergies Home Medications Medication Instructions Recorded Confirmed Last Taken Type albuterol sulfate 90 mcg/actuation 2 puff inhalation Q6H PRN 05/16/20 12/01/21 11/29/21 Rx aerosol inhaler (ProAir HFA) shortness of breath or wheezing #18 grams escitalopram oxalate 20 mg tablet 20 mg PO DAILY 05/26/20 12/01/21 11/30/21 History (Lexapro) gabapentin 300 mg capsule 300 mg PO TID 05/26/20 12/01/21 11/30/21 History ipratropium 0.5 mg-albuterol 3 mg 3 ml inhalation Q4H PRN Shortness 05/26/20 12/01/21 10/02/20 18:00 History (2.5 mg base)/3 mL nebulization Of Breath soln meloxicam 15 mg tablet 15 mg PO DAILY 05/26/20 12/01/21 11/30/21 History metoprolol succinate 50 mg 50 mg PO DAILY 05/26/20 12/01/21 11/30/21 History tablet,extended release 24 hr nortriptyline 75 mg capsule 100 mg PO DAILY 05/26/20 12/01/21 11/30/21 History venlafaxine 75 mg tablet 75 mg PO BID 05/26/20 12/01/21 11/30/21 History budesonide-formoterol HFA 160 2 puff inhalation BID #10.2 grams 05/31/20 12/01/21 11/29/21 Rx mcg-4.5 mcg/actuation aerosol inhaler (Symbicort) guaifenesin 600 mg tablet, 600 mg PO DAILY@18 PRN Congestion 08/01/20 12/01/21 10/02/20 18:00 History extended release 12 hr (Mucinex) famotidine 10 mg tablet 10 mg PO DAILY 09/15/20 12/01/21 11/30/21 History prednisone 20 mg tablet 20 mg PO DAILY 7 days #7 tabs 10/11/21 12/01/21 11/17/21 Rx oxybutynin chloride 15 mg 15 mg PO DAILY #90 tabs 11/20/21 12/01/21 11/30/21 Rx tablet,extended release 24 hr bupropion HCl 150 mg 24 hr tablet, 150 mg PO QAM 12/01/21 12/01/21 11/30/21 History extended release (Wellbutrin XL) desvenlafaxine succinate 50 mg 50 mg PO DAILY 12/01/21 12/01/21 11/30/21 History tablet,extended release 24 hr (Pristiq) hydroxyzine pamoate 50 mg capsule 50 mg PO QID PRN Anxiety 12/01/21 12/01/21 11/30/21 History Allergies Allergy/AdvReac Type Severity Reaction Status Date / Time No Known Allergies Allergy Verified 11/15/21 09:48 [facility] Anesthesia Medical History Acquired phimosis of penis Balanitis Bloated abdomen Dental infection Diarrhea Ex-smoker for more than 1 year Lower urinary tract symptoms (LUTS) Restrictive lung disease Sacral lesion Urinary incontinence Surgical History Status post routine circumcision Family History Family/Other CAD (coronary artery disease) Hypertension Lung disease Social History Smoking and tobacco status: current some day smoker Quit status (tobacco): has quit using tobacco Year quit tobacco: dec 30, 2013 Former quit date comment: [id number] Second hand smoke exposure: Yes Smoking risk assessment/counseling performed?: No Alcohol intake: current Alcohol intake frequency: holidays/special occasions only Desire information about alcohol rehabilitation?: No Counseling given: No Lives independently: Yes Household members: spouse Housing: House Marital status: service: No Current occupational status: employed Pets and animals: No History of recent travel: No Current gender identity: Male Data Anesthesia Cardiac Studies: Stress Echocardiogram 03/29/20
[2021-12-01] MEDS: sodium chloride 0.9% 1,000 ML 30 ML IV (10:40)
[2021-12-01] MEDS: acetaminophen 1,000 MG/100 ML PIGGYBACK 400 MG IV (10:40)
--- NOTE | 2021-12-01 10:41 | W.PM.OPSUD ---
Surgery/Procedure H&P Update DATE OF PROCEDURE: December 01, 2021 DATE H&P PERFORMED: 11/15/21 H&P UPDATE INFORMATION: I have reviewed H&P completed within last 30 days, I have examined patient prior to procedure, No changes to prior documentation and H&P is in [facility] EMR on date indicated PREOP DIAGNOSIS: Left de Quervain's tenosynovitis PLANNED PROCEDURE: Operation Date: 12/01/21 12:40 Proposed Procedures p LEFT DE QUERVAINS RELEASE [id number],M65.4(Left) - Nisha Frazier MD Related Problem List Diagnoses (1) De Quervain's tenosynovitis, left:
[2021-12-01] MEDS: CELEcoxib 200 mg Capsule 400 MG PO (10:48)
[2021-12-01] MEDS: ceFAZolin 2,000 MG in sodium chloride 0.9% (plus) 50 ML 100 MG IV (11:27)
[2021-12-01 12:33] VITALS: BP 176/93; PULSE 58; RESP 18; TEMP 36.2; O2SAT 95
[2021-12-01 12:39] VITALS: BP 162/95; PULSE 60; RESP 15; O2SAT 96
[2021-12-01 12:42] VITALS: BP 170/84; PULSE 53; RESP 16; TEMP 36.6; O2SAT 97
[2021-12-01 12:45] VITALS: BP 159/94; PULSE 50; RESP 15; TEMP 36.6; O2SAT 95
--- NOTE | 2021-12-01 12:46 | P.OP_ITS ---
Operative Report Date of procedure: December 01, 2021 Pre-op diagnosis: Left de Quervain's tenosynovitis Post-op diagnosis: Left de Quervain's tenosynovitis Post-op findings: Significant tendinitis and compression across de Quervain's canal Procedure done: Left de Quervain's release Pathology: none sent Surgeon: Nisha Frazier Consulting Solution Director: [facility] operating room technicians Anesthesia: General (LMA, ASA 3) Estimated blood loss (mL): 2 Tourniquet time (min): 29 (At 250 mmHg) IV fluids (mL): 800 Urine output (mL): 0 Complications: None Findings: Significant tenosynovitis within de Quervain's canal Condition: stable Disposition: PACU (Then to same-day surgery for discharge home with family) Brief History: This 36-year-old gentleman presented to my office with increasing left wrist pain. He had a carpal tunnel release to the left on September 16, 2020. The pain with which he presented, however, was over de Quervain's canal. He noted that the pain was 10 of 10 and constant. The patient presented in October to further discuss surgical intervention. Risks and complications were discussed with the patient. He wished to proceed. Consents were signed. Procedure: The patient was brought to the operating theater. Anesthesia provided general anesthesia per LMA, ASA 3. The patient's left upper extremity was prepped and draped in usual fashion utilizing DuraPrep. It was draped free. Tourniquet was placed on the arm and was elevated to 250 mmHg. Total tourniquet time was 29 minutes. The patient was given preoperative antibiotics, Ancef 2 g. Surgical pause was performed. During the surgical pause, we confirmed the patient's procedure, date of , name, and appropriate preoperative antibiotics. The radial styloid was palpated and an incision was made horizontally approximately 1 cm proximal to the tip of the radial styloid. Dissection continued through the skin and dermis but following that soft tissue blunt dissection was accomplished to prevent injury to the superficial radial nerve branches in the area. We were able to retract these branches and the first dorsal compartment was visualized. The fibrous tissue over the first dorsal compartment was noted to be quite thickened and erythematous. This was released longitudinally using a combination of scalpel and scissors. We then confirmed that each of the tendons had been released. There were 3 tendon slips within the canal. All of these were released at least a centimeter distal to the radial styloid and proximally as well. There was no further compression across the tendons. The tendons were pulled up out of the tunnel for evaluation. Following this, the wound was irrigated. Attention was then directed to closure. Closure was accomplished with 4-0 Monocryl in an interrupted fashion within the subcutaneous tissues, and subsequently, a subcuticular suture was placed in a running fashion utilizing 4-0 Monocryl as well. We injected the wound with half percent bupivacaine plain for local anesthetic. This was followed by Dermabond, Steri-Strips, and a Tegaderm. Fluffed fluffs were then placed followed by soft roll, and an Johann wrap. Patient was returned to Recovery Room in a satisfactory condition and will be discharged home to follow-up with me in the office. There were no specimens and no complications. Related Problem List Diagnoses (1) De Quervain's tenosynovitis, left:
[2021-12-01] MEDS: HYDROcodone-acetaminophen 5-325 mg Tablet 1 TAB PO (12:58)
[2021-12-01 13:00] VITALS: BP 160/95; PULSE 51; RESP 16; O2SAT 95
--- NOTE | 2021-12-01 14:20 | ANE.PACU2 ---
Inpatient post-anesthesia follow up: Airway intact: Yes Vital signs: Temperature 97.8 F Pulse Rate 51 Respiratory Rate 16 Blood Pressure 160/95 Pulse Oximetry 95 Oxygen Delivery Me thod Room Air Oxygen Flow Rate Fraction of Inspir ed Oxygen Hydration adequate: Yes Nausea and vomiting: No Pain level: 1 Mental status: Baseline
== END 2021-12-01 13:40 | disposition home or self-care (01) ==
PROVIDERS: PCP Registered Nurse; Visit Provider Specialist
PROC: (CPT 25000; principal; 2021-12-01 12:30)
DX: M65.4 Radial styloid tenosynovitis [de Quervain] (principal); J44.9 Chronic obstructive pulmonary disease, unspecified; G47.30 Sleep apnea, unspecified; F17.210 Nicotine dependence, cigarettes, uncomplicated
CPT/HCPCS: 25000; J1100; J1885; J2405; J2704; J3010; J3490; J7030

== ENCOUNTER → 2021-12-14 13:25 | Outpatient (BNVA) | payer BC, MEDICAID, SELFPAY | PROVIDERS: PCP Registered Nurse; Visit Provider Nurse Practitioner Family | DX: Z98.890 Other specified postprocedural states (principal); L03.90 Cellulitis, unspecified | CPT/HCPCS: 99213; 99214 ==

== ENCOUNTER → 2022-09-04 11:47 | Outpatient (BNVA) | payer BC, MEDICAID, SELFPAY | PROVIDERS: PCP Nurse Practitioner Family; Visit Provider Nurse Practitioner | DX: G44.209 Tension-type headache, unspecified, not intractable (principal) | CPT/HCPCS: 87400 ==

== ENCOUNTER → 2023-01-17 13:45 | Outpatient (BNVA) | payer OTHER, SELFPAY | PROVIDERS: PCP Nurse Practitioner Family; Visit Provider Nurse Practitioner Family | DX: Z02.1 Encounter for pre-employment examination (principal); H10.9 Unspecified conjunctivitis | CPT/HCPCS: 80307 ==

== ENCOUNTER → 2023-01-25 11:13 | Outpatient (BNVA) | payer BC, SELFPAY | PROVIDERS: PCP Nurse Practitioner Family; Visit Provider Nurse Practitioner | DX: I10 Essential (primary) hypertension (principal); R60.9 Edema, unspecified | CPT/HCPCS: 80053; 80061; 84443; 85025 ==

== ENCOUNTER → 2023-07-08 15:18 | Outpatient (BNVA) | payer BC, SELFPAY | PROVIDERS: PCP Nurse Practitioner Family; Visit Provider Nurse Practitioner Family | DX: K52.9 Noninfective gastroenteritis and colitis, unspecified (principal) | CPT/HCPCS: 80053; 85651; 86140 ==

== ENCOUNTER → 2024-03-07 12:17 | Outpatient (BNVA) | payer BC, SELFPAY | PROVIDERS: PCP Family Medicine; Visit Provider Emergency Medicine | DX: R05.9 Cough, unspecified (principal) | CPT/HCPCS: 87400; 87426 ==

== ENCOUNTER 2024-03-12 16:22 | Emergency (ER) | payer BC, MEDICAID, SELFPAY ==
[2024-03-12] VITALS (8 sets, daily range): BP systolic 125–150; BP diastolic 81–109; PULSE 63–77; RESP 16; TEMP 36.8; O2SAT 94–97; BMI 30.8
[2024-03-12] MEDS: ketorolac 60 mg/2 mL INJ IM (18:18)
[2024-03-12] MEDS: ondansetron 2 mg/ML SDV 2 mL 4 MG IM (18:18)
--- NOTE | 2024-03-12 19:20 | ED_ITS ---
HPI - Headache General: Chief Complaint: Headache Stated Complaint: Migrane headache 3 days Time Seen by Provider: 03/12/24 17:54 History of Present Illness: Patient presents to the ER with complaints of a migraine headache for the last 3 days. Patient has tried all his standard migraine medications with no results. Patient states this is his normal migraine headache just worsen longer. Patient also complains of nausea vomiting and photophobia. Patient's daughter has been sick with upper respiratory type infection. Related Data Home Medications Medication Instructions Recorded Confirmed ipratropium 0.5 mg-albuterol 3 mg 3 ml inhalation Q4H PRN Shortness 05/26/20 03/07/24 (2.5 mg base)/3 mL nebulization Of Breath soln hydroxyzine HCl 50 mg tablet 50 mg PO QID PRN 01/18/23 03/07/24 Previous Rx's Medication Instructions Recorded metoprolol succinate 50 mg See Rx Instructions .Route 05/07/23 tablet,extended release 24 hr .COMPLEX #30 tabs ondansetron 4 mg disintegrating 4 mg PO Q8H PRN nausea and 02/17/24 tablet vomiting #30 tabs albuterol sulfate 90 mcg/actuation 1 inh inhalation QID PRN shortness 03/06/24 aerosol inhaler of breath or wheezing #8.5 grams amitriptyline 25 mg tablet 25 mg PO DAILY #30 tabs 03/06/24 budesonide-formoterol HFA 160 2 puff inhalation BID #10.2 grams 03/06/24 mcg-4.5 mcg/actuation aerosol inhaler (Symbicort) dicyclomine 10 mg capsule 10 mg PO TID PRN abdominal pain 03/06/24 #30 caps duloxetine 60 mg capsule,delayed 120 mg (2 x 60 mg) PO DAILY #60 03/06/24 release (Cymbalta) caps gabapentin 300 mg capsule 300 mg PO DAILY #90 caps 03/06/24 nebulizer and equipment #1 ea 03/06/24 nicotine 21 mg/24 hr daily 1 patch transdermal DAILY #28 ea 03/06/24 transdermal patch omeprazole 40 mg capsule,delayed See Rx Instructions .Route 03/06/24 release .COMPLEX #30 caps sumatriptan succinate 25 mg tablet See Rx Instructions .Route 03/06/24 .COMPLEX #9 ea trazodone 100 mg tablet 400 mg (4 x 100 mg) PO .HS PRN 03/06/24 insomnia #120 tabs ondansetron 8 mg disintegrating 8 mg PO Q8H PRN nausea and 03/07/24 tablet vomiting 5 days #15 tabs Allergies Allergy/AdvReac Type Severity Reaction Status Date / Time No Known Allergies Allergy Verified 03/12/24 16:40 Review of Systems General: Reports: 10 or more systems reviewed and unremarkable except in HPI and below PFSH ED PFSH: Medical History Carpal tunnel syndrome, bilateral upper limbs Tobacco use disorder Irritable bowel Generalized anxiety disorder Major depressive disorder, recurrent severe without psychotic features Post-traumatic stress disorder, chronic Migraine headache MIKE (obstructive sleep apnea) Asthma-COPD overlap syndrome Gastroenteritis Mood swings Difficulty controlling anger Anxiety and depression Hypertension Acid reflux Diarrhea Bloated abdomen Acquired phimosis of penis Lower urinary tract symptoms (LUTS) Restrictive lung disease Surgical History Status post routine circumcision Family History Family/Other CAD (coronary artery disease) Hypertension Lung disease Social History Smoking and tobacco/nicotine status: unknown if used tobacco/nicotine Quit status (tobacco/nicotine): has quit using Year quit tobacco: dec 30, 2013 Former quit date comment: [id number] Second hand smoke exposure: Yes Alcohol intake: current Alcohol intake frequency: holidays/special occasions only Substance/Drug Use: never Lives independently: Yes Household members: spouse Housing: House Marital status: service: No Current occupational status: employed Pets and animals: No Do you think of yourself as: Straight/Heterosexual Current gender identity: Male Physical Exam Const: COMMON NORMALS: no acute distress, average body habitus, patient oriented x3, no limitations, healthy appearing, alert and well nourished HENMT: COMMON NORMALS: normocephalic, atraumatic, hearing grossly normal bilaterally, external ears normal, Normal external nose present and moist oral mucous membranes HEAD & SCALP: normocephalic and atraumatic NOSE: Normal external nose present EXTERNAL EAR: Yes external ears normal Neck/C-Spine: COMMON NORMALS: full ROM, no lymphadenopathy, supple, no meningeal signs, no JVD and Thyroid normal THYROID: Thyroid normal Chest: COMMONS NORMALS: normal inspection of the chest and normal palpation of entire chest wall Resp: COMMON NORMALS: normal respiratory effort, No retractions, No use of accessory muscles and clear to auscultation bilaterally AUSCULTATION: clear to auscultation bilaterally Cardio: COMMON NORMALS: no JVD, regular rate, regular rhythm, S1 normal heart sound present, S2 normal heart sound present, No gallops present (Cardio), No clicks present (Cardio), No murmurs present (Cardio) and No rub (Cardio) RATE: regular rate RHYTHM: regular rhythm HEART SOUNDS: S1 normal heart sound present and S2 normal heart sound present GI: COMMON NORMALS: Normal to inspection, nondistended, normoactive bowel sounds present, Soft to palpation, non-tender, No hepatosplenomegaly present and no masses PALPATION: Yes Soft to palpation and Yes No hepatosplenomegaly present Neuro: COMMON NORMALS: patient oriented x3 SENSORIUM/ORIENTATION: Yes alert MENINGEAL SIGNS: Yes no meningeal signs Course Vital Signs: Vital signs: Vital Signs Temperature 98.3 F 03/12/24 16:37 Pulse Rate 63 03/12/24 21:02 Respiratory Rate 16 03/12/24 21:02 Blood Pressure 130/83 03/12/24 21:02 Pulse Oximetry 94 03/12/24 21:02 Oxygen Delivery Me thod Room Air 03/12/24 18:30 MDM - Headache Medical Decision Making Patient was given 10 mg Reglan, 50 mg Benadryl, 10 mg Decadron, 4 mg Zofran, 60 mg Toradol, all during his hospital stay and his migraine broke he is pain-free upon discharge. Medical Records I reviewed the patient's medical records. Lab Data I reviewed the patient's lab results. No radiology studies performed this visit Discharge Plan Discharge Patient Disposition: Home Clinical Impression: Migraine Qualifiers: Migraine type: unspecified Status migrainosus presence: without status migrainosus Intractability: not intractable Qualified Code(s): G43.909 - Migraine, unspecified, not intractable, without status migrainosus Condition: Stable Prescriptions: No Action ipratropium-albuterol 0.5 mg-3 mg(2.5 mg base)/3 mL solution for nebulization 3 ml inhalation Q4H PRN (Reason: Shortness Of Breath) ondansetron 4 mg tablet,disintegrating 4 mg PO Q8H PRN (Reason: nausea and vomiting) Qty: 30 0RF hydroxyzine HCl 50 mg tablet 50 mg PO QID PRN nicotine 21 mg/24 hr patch 24 hour 1 patch transdermal DAILY Qty: 28 2RF trazodone 100 mg tablet 400 mg PO .HS PRN (Reason: insomnia) Qty: 120 0RF omeprazole 40 mg capsule,delayed release(DR/EC) See Rx Instructions .ROUTE .COMPLEX Qty: 30 1RF Dose Instruction: TAKE 1 CAPSULE BY MOUTH DAILY Rx Instructions: TAKE 1 CAPSULE BY MOUTH DAILY dicyclomine 10 mg capsule 10 mg PO TID PRN (Reason: abdominal pain) Qty: 30 1RF duloxetine [Cymbalta] 60 mg capsule,delayed release(DR/EC) 120 mg PO DAILY Qty: 60 2RF budesonide-formoterol [Symbicort] 160-4.5 mcg/actuation HFA aerosol inhaler 2 puff INHALATION BID Qty: 10.2 3RF albuterol sulfate 90 mcg/actuation HFA aerosol inhaler 1 inh inhalation QID PRN (Reason: shortness of breath or wheezing) Qty: 8.5 0RF sumatriptan succinate 25 mg tablet See Rx Instructions .ROUTE .COMPLEX Qty: 9 2RF Dose Instruction: TAKE 1 TABLET AT ONSET OF HEADACHE FOR 30 DAYS; IF no RELIEF MAY REPEAT 1 TABLET AFTER AT least 2 HOURS; max = 4 tabs/24 HOUR BY MOUTH] Rx Instructions: TAKE 1 TABLET AT ONSET OF HEADACHE FOR 30 DAYS; IF no RELIEF MAY REPEAT 1 TABLET AFTER AT least 2 HOURS; max = 4 tabs/24 HOUR BY MOUTH] amitriptyline 25 mg tablet 25 mg PO DAILY Qty: 30 1RF gabapentin 300 mg capsule 300 mg PO DAILY Qty: 90 1RF (DME) nebulizer and equipment See Rx Instructions .Route .MEDSUPPLY Qty: 1 0RF Rx Instructions: As directed ondansetron 8 mg tablet,disintegrating 8 mg PO Q8H PRN (Reason: nausea and vomiting) 5 Days Qty: 15 0RF metoprolol succinate 50 mg tablet extended release 24 hr See Rx Instructions .ROUTE .COMPLEX Qty: 30 1RF Dose Instruction: TAKE 1 TABLET BY MOUTH DAILY Rx Instructions: TAKE 1 TABLET BY MOUTH DAILY Discharge Orders: Discharge ED (Routine); Ordered 03/12/24 Ordered By: Pete Sepulveda Referrals: Miguel Kee MD [Primary Care Provider] - 1 week Patient Instructions: Headache - Migraine (Adult) Activity Restrictions/Additional Instructions: Thank you for choosing [facility] for your healthcare needs today. Please realize that you were seen in the emergency department and that we are pr oviding you with an emergency medical screening exam and this may not be a complete and all exclusive of all testing and/or medical workup we may need to determine your element or severity of your illness. It is very important that you follow-up as instructed with your primary care provider or specialist for the additional evaluation and to discuss your medical treatment plan. You may return to the emergency department should you have concerns or if your condition changes or worsens in any way. 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
[2024-03-12] MEDS: diphenhydrAMINE 50 mg/mL SDV 1mL IM (19:41)
[2024-03-12] MEDS: dexamethasone 10 mg/mL INJ IM (19:42)
[2024-03-12] MEDS: metoclopramide 5 mg/mL SDV 2 mL 10 MG IM (19:42)
== END 2024-03-12 21:26 | disposition home or self-care (01) ==
PROVIDERS: Emergency Provider Emergency Medicine; PCP Family Medicine
DX: G43.909 Migraine, unspecified, not intractable, without status migrainosus (principal); Z87.891 Personal history of nicotine dependence
CPT/HCPCS: 96372; 99284; J1100; J1200; J1885; J2405; J2765

== ENCOUNTER → 2024-03-30 13:30 | Outpatient (BNVA) | payer BC, SELFPAY | PROVIDERS: PCP Family Medicine; Visit Provider Specialist | DX: M25.531 Pain in right wrist; M25.532 Pain in left wrist; M79.89 Other specified soft tissue disorders; M06.4 Inflammatory polyarthropathy; G56.03 Carpal tunnel syndrome, bilateral upper limbs | CPT/HCPCS: 36415; 73110; 80053; 84550; 85025; 85651; 86140; 86200; 86225; 86235; 86431 ==

== ENCOUNTER 2024-04-06 07:16 | Emergency (ER) | payer BC, MEDICAID, SELFPAY ==
--- NOTE | 2024-04-06 07:29 | XRR_ITS ---
PROCEDURE INFORMATION: Exam: XR Chest Exam date and time: 04/06/2024 7:40 AM Age: 38 years old Clinical indication: Cough and dyspnea; Additional info: Dyspnea/cough TECHNIQUE: Imaging protocol: Radiologic exam of the chest. Views: 1 view. COMPARISON: CT chest con [id number] 06/15/2020 2:17 PM FINDINGS: Lungs: Unremarkable. No consolidation. Pleural spaces: Unremarkable. No pleural effusion. No pneumothorax. Heart/Mediastinum: Unremarkable. No cardiomegaly. Bones/joints: Unremarkable. XR/XR chest 1V portable [id number] IMPRESSION: No acute findings.
[2024-04-06 07:34] VITALS: BP 147/98; PULSE 83; RESP 18; TEMP 36.9; O2SAT 97; BMI 31.3
--- NOTE | 2024-04-06 09:53 | ED_ITS ---
HPI - Nausea/Vomiting/Diarrhea 2 General: Chief complaint: Nausea/Vomiting/Diarrhea Stated complaint: sick for 2 wks and now headache since yesterday Time Seen by Provider: 04/06/24 07:28 History of Present Illness: 38-year-old male above. Patient complai brittney of intermittently being sick for the last 2 weeks is a lot of nausea some vomiting no hematemesis no hematochezia or melena. Slight cough no shortness of breath. Not seen previously. Denies any chest pain some vague abdominal discomfort nothing focal history of COPD and is on inhaled medications. Associated symtoms: Denies chest pain or dysuria Related Data Home Medications Medication Instructions Recorded Confirmed ipratropium 0.5 mg-albuterol 3 mg 3 ml inhalation Q4H PRN Shortness 05/26/20 04/06/24 (2.5 mg base)/3 mL nebulization Of Breath soln omeprazole 40 mg capsule,delayed 40 mg PO DAILY 04/06/24 04/06/24 release Previous Rx's Medication Instructions Recorded ondansetron 4 mg disintegrating 4 mg PO Q8H PRN nausea and 02/17/24 tablet vomiting #30 tabs albuterol sulfate 90 mcg/actuation 1 inh inhalation QID PRN shortness 03/06/24 aerosol inhaler of breath or wheezing #8.5 grams budesonide-formoterol HFA 160 2 puff inhalation BID #10.2 grams 03/06/24 mcg-4.5 mcg/actuation aerosol inhaler (Symbicort) dicyclomine 10 mg capsule 10 mg PO TID PRN abdominal pain 03/06/24 #30 caps gabapentin 300 mg capsule 300 mg PO DAILY #90 caps 03/06/24 nebulizer and equipment #1 ea 03/06/24 ondansetron 8 mg disintegrating 8 mg PO Q8H PRN nausea and 03/07/24 tablet vomiting 5 days #15 tabs amitriptyline 25 mg tablet 25 mg PO DAILY #30 tabs 03/27/24 duloxetine 60 mg capsule,delayed 120 mg (2 x 60 mg) PO DAILY #60 03/27/24 release (Cymbalta) caps nicotine 21 mg/24 hr daily 1 patch transdermal DAILY #28 ea 03/27/24 transdermal patch sumatriptan succinate 25 mg tablet See Rx Instructions .Route 03/27/24 .COMPLEX #9 ea trazodone 100 mg tablet 400 mg (4 x 100 mg) PO .HS PRN 03/27/24 insomnia #120 tabs varenicline 1 mg tablet 1 mg PO BID #56 tabs 03/27/24 promethazine 25 mg tablet 25 mg PO Q6H PRN nausea and 04/06/24 vomiting #20 tabs Allergies Allergy/AdvReac Type Severity Reaction Status Date / Time No Known Allergies Allergy Verified 03/30/24 13:42 Review of Systems 2 Const: Denies: fever(s) or chills Card: Denies: chest pain Resp: Denies: dyspnea GI: Denies: abdominal pain : Denies: dysuria, urinary frequency or urinary urgency Musc: Denies: neck pain or back pain Skin/Breast: Denies: rash PFSH ED 2 PFSH: Medical History Carpal tunnel syndrome, bilateral upper limbs Tobacco use disorder Irritable bowel Generalized anxiety disorder Major depressive disorder, recurrent severe without psychotic features Post-traumatic stress disorder, chronic Migraine headache MIKE (obstructive sleep apnea) Asthma-COPD overlap syndrome Gastroenteritis Mood swings Difficulty controlling anger Anxiety and depression Hypertension Acid reflux Diarrhea Bloated abdomen Acquired phimosis of penis Lower urinary tract symptoms (LUTS) Restrictive lung disease Surgical History Status post routine circumcision Family History Family/Other CAD (coronary artery disease) Hypertension Lung disease Social History Smoking and tobacco/nicotine status: current every day tobacco/nicotine user Quit status (tobacco/nicotine): has quit using Year quit tobacco: dec 30, 2013 Former quit date comment: [id number] Second hand smoke exposure: Yes Alcohol intake: current Alcohol intake frequency: holidays/special occasions only Substance/Drug Use: never Lives independently: Yes Household members: spouse Housing: House Marital status: service: No Current occupational status: employed Pets and animals: No Do you think of yourself as: Straight/Heterosexual Current gender identity: Male Physical Exam 2 Const: GENERAL APPEARANCE: cooperative ORIENTATION/CONSCIOUSNESS: Yes awake, Yes oriented to person, Yes oriented to place and Yes oriented to time HENMT: COMMON NORMALS: normocephalic, atraumatic and hearing grossly normal bilaterally HEAD & SCALP: normocephalic and atraumatic Resp: COMMON NORMALS: normal respiratory effort, No retractions, No use of accessory muscles and clear to auscultation bilaterally AUSCULTATION: clear to auscultation bilaterally Cardio: COMMON NORMALS: regular rate, regular rhythm and No murmurs present (Cardio) RATE: regular rate RHYTHM: regular rhythm GI: COMMON NORMALS: Soft to palpation and No hepatosplenomegaly present A USCULTATION: Yes normoactive bowel sounds PALPATION: Yes Soft to palpation, No Tenderness to palpation present (GI), No Guarding due to palpation present (GI) and Yes No hepatosplenomegaly present Extremity: COMMON NORMALS: normal to inspection, capillary refill normal, no clubbing, cyanosis or edema, no calf tenderness and no pedal edema Neuro: SENSORIUM/ORIENTATION: Yes oriented to person, Yes oriented to place and Yes oriented to time Skin: COMMON NORMALS: no rashes or lesions noted GENERAL SKIN EXAM: no rashes or lesions noted Course 2 Vital Signs: Vital signs: Vital Signs Temperature 98.4 F 04/06/24 07:34 Pulse Rate 74 04/06/24 13:43 Respiratory Rate 20 H 04/06/24 10:50 Blood Pressure 125/91 04/06/24 13:43 Pulse Oximetry 96 04/06/24 13:43 Oxygen Delivery Me thod Room Air 04/06/24 13:20 MDM - Nausea/Vomiting/Diarrhea Medical Decision Making Labs and imaging reviewed no significant findings. Will discharge patient home on promethazine. Flu COVID RSV negative CBC and CMP unremarkable. Urine no signs of infection. No acute findings on chest x-ray. Reviewed with the patient. Cleared for diet 24 to 48 hours advance as tolerated Medical Records I reviewed the patient's medical records. Lab Data I reviewed the patient's lab results. 04/06/24 10:48 04/06/24 10:48 Radiology Impressions Chest X-Ray 04/06/24 07:29 IMPRESSION: No acute findings. Laboratory Results WBC 10.99 10^3/uL (3.29-11.43) 04/06/24 10:48 RBC 5.10 10^6/uL (3.85-5.65) 04/06/24 10:48 Hgb 16.70 g/dL (11.27-16.99) 04/06/24 10:48 Hct 47.0 % (37-53) 04/06/24 10:48 MCV 92.2 fl (82-101) 04/06/24 10:48 MCH 32.7 pg (27-33) 04/06/24 10:48 MCHC 35.5 g/dL (30-55) 04/06/24 10:48 RDW 12.4 % (12.1-15.1) 04/06/24 10:48 Plt Count 189 10^3/cmm (157-399) 04/06/24 10:48 MPV 9.3 fL (7.4-10.4) 04/06/24 10:48 Neut % (Auto) 49.7 % 04/06/24 10:48 Lymph % (Auto) 35.5 % 04/06/24 10:48 [place] % (Auto) 8.1 % 04/06/24 10:48 Eos % (Auto) 2.2 % 04/06/24 10:48 Baso % (Auto) 0.8 % 04/06/24 10:48 Neut # (Auto) 5.46 10^3/uL (1.8-7.7) 04/06/24 10:48 Lymph # (Auto) 3.9 10^3/uL (0.8-4.8) 04/06/24 10:48 [place] # (Auto) 0.9 10^3/uL (0.2-0.9) 04/06/24 10:48 Eos # (Auto) 0.2 10^3/uL (0.0-0.8) 04/06/24 10:48 Baso # (Auto) 0.1 10^3/uL (0.0-0.1) 04/06/24 10:48 Nucleated RBC % (auto) 0 % 04/06/24 10:48 Nucleated RBCs # 0.0 /100WBC 04/06/24 10:48 Sodium 135 mmol/L (136-145) L 04/06/24 10:48 Potassium 4.1 mmol/L (3.5-5.1) 04/06/24 10:48 Chloride 101 mmol/L (98-107) 04/06/24 10:48 Carbon Dioxide 25 mmol/L (22-29) 04/06/24 10:48 Anion Gap 13.1 (5-19) 04/06/24 10:48 BUN 12 mg/dL (6-20) 04/06/24 10:48 Creatinine 0.9 mg/dL (0.7-1.2) 04/06/24 10:48 GFR Calculation 93.5 mL/min (90-130) 04/06/24 10:48 Glucose 93 mg/dL (65-115) 04/06/24 10:48 Calculated Osmolality 279 mOsm/kg (285-295) L 04/06/24 10:48 Calcium 8.7 mg/dL (8.5-10.5) 04/06/24 10:48 Total Bilirubin 0.4 mg/dL (0.15-1.2) 04/06/24 10:48 AST 18 U/L (0-40) 04/06/24 10:48 ALT 29 U/L (0-41) 04/06/24 10:48 Alkaline Phosphatase 55 U/L (40-130) 04/06/24 10:48 Total Protein 6.5 g/dL (6.6-8.7) L 04/06/24 10:48 Albumin 4.0 g/dL (3.5-5.2) 04/06/24 10:48 Globulin 2.5 g/dL (1.3-4.6) 04/06/24 10:48 Urine Color Yellow (Yellow) 04/06/24 12:04 Urine Appearance Clear (CLEAR) 04/06/24 12:04 Urine pH 7.5 (5-7) 04/06/24 12:04 Ur Specific [place] 1.021 (1.005-1.030) 04/06/24 12:04 Urine Protein Negative (Negative) 04/06/24 12:04 Urine Glucose (UA) Negative (Normal) 04/06/24 12:04 Urine Ketones Negative (Negative) 04/06/24 12:04 Urine Blood Negative (Negative) 04/06/24 12:04 Urine Nitrate Negative (Negative) 04/06/24 12:04 Urine Bilirubin Negative (Negative) 04/06/24 12:04 Urine Urobilinogen 1.0 mg/dL (Negative) 04/06/24 12:04 Ur Leukocyte Esterase Negative (Negative) 04/06/24 12:04 Urine RBC 0-2 /hpf (0-2) 04/06/24 12:04 Urine WBC 0-5 /hpf (0-5) 04/06/24 12:04 Ur Squamous Epith Cells 0-5 /hpf (0-5) 04/06/24 12:04 Amorphous Sediment Not Reportable 04/06/24 12:04 Urine Bacteria None seen /hpf (NONE) 04/06/24 12:04 Hyaline Casts 0-4 /lpf H 04/06/24 12:04 Coronavirus (PCR) Negative (Negative) 04/06/24 12:25 Influenza A (PCR) Negative (Negative) 04/06/24 12:25 Influenza Type B (PCR) Negative (Negative) 04/06/24 12:25 RSV (PCR) Negative (Negative) 04/06/24 12:25 All radiology interpretation(s) finalized by discharge Discharge Plan Discharge Patient Disposition: Home Clinical Impression: Gastroenteritis Condition: Stable Prescriptions: New promethazine 25 mg tablet 25 mg PO Q6H PRN (Reason: nausea and vomiting) Qty: 20 0RF No Action ipratropium-albuterol 0.5 mg-3 mg(2.5 mg base)/3 mL solution for nebulization 3 ml inhalation Q4H PRN (Reason: Shortness Of Breath) ondansetron 4 mg tablet,disintegrating 4 mg PO Q8H PRN (Reason: nausea and vomiting) Qty: 30 0RF nicotine 21 mg/24 hr patch 24 hour 1 patch transdermal DAILY Qty: 28 2RF trazodone 100 mg tablet 400 mg PO .HS PRN (Reason: insomnia) Qty: 120 11RF duloxetine [Cymbalta] 60 mg capsule,delayed release(DR/EC) 120 mg PO DAILY Qty: 60 11RF varenicline 1 mg tablet 1 mg PO BID Qty: 56 11RF dicyclomine 10 mg capsule 10 mg PO TID PRN (Reason: abdominal pain) Qty: 30 1RF budesonide-formoterol [Symbicort] 160-4.5 mcg/actuation HFA aerosol inhaler 2 puff INHALATION BID Qty: 10.2 3RF albuterol sulfate 90 mcg/actuation HFA aerosol inhaler 1 inh inhalation QID PRN (Reason: shortness of breath or wheezing) Qty: 8.5 0RF gabapentin 300 mg capsule 300 mg PO DAILY Qty: 90 1RF (DME) nebulizer and equipment See Rx Instructions .Route .MEDSUPPLY Qty: 1 0RF Rx Instructions: As directed ondansetron 8 mg tablet,disintegrating 8 mg PO Q8H PRN (Reason: nausea and vomiting) 5 Days Qty: 15 0RF amitriptyline 25 mg tablet 25 mg PO DAILY Qty: 30 1RF sumatriptan succinate 25 mg tablet See Rx Instructions .ROUTE .COMPLEX Qty: 9 2RF Dose Instruction: TAKE 1 TABLET AT ONSET OF HEADACHE FOR 30 DAYS; IF no RELIEF MAY REPEAT 1 TABLET AFTER AT least 2 HOURS; max = 4 tabs/24 HOUR BY MOUTH] Rx Instructions: TAKE 1 TABLET AT ONSET OF HEADACHE FOR 30 DAYS; IF no RELIEF MAY REPEAT 1 TABLET AFTER AT least 2 HOURS; max = 4 tabs/24 HOUR BY MOUTH] omeprazole 40 mg capsule,delayed release(DR/EC) 40 mg PO DAILY Rx Instructions: TAKE 1 CAPSULE BY MOUTH DAILY Discharge Orders: Discharge ED (Routine); Ordered 04/06/24 Ordered By: Palmer Arana Referrals: Miguel Kee MD [Primary Care Provider] - Discharge Diet: Clear Liquid Discharge Activity: Increase activity as tolerated Patient Instructions: Opioid Safety, Pain Management Activity Restrictions/Additional Instructions: Thank you for choosing [facility] for your healthcare needs today. It is very important that you follow up as instructed or that you return to the Emergency Department should you have concerns or if your condition changes or worsens in any way. You are seen emergency room complaining of nausea vomiting generally not feeling well. Your laboratory test did not show significant abnormality. White count was normal chemistries liver functions kidney functions were all normal. Urine did not show signs of infection chest x-ray is normal flu COVID RSV swabs were negative. 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
[2024-04-06] MEDS: acetaminophen 325 mg Tablet 650 MG PO (10:38)
[2024-04-06] MEDS: ketorolac 30 mg/mL INJ IVP (10:46)
[2024-04-06] MEDS: prochlorperazine 10 mg/2 mL Inj IVP (10:47)
[2024-04-06 10:50] VITALS: BP 123/91; PULSE 73; RESP 20; O2SAT 95
[2024-04-06 11:01] LABS: Basophils # 0.1 10^3/uL (0.0-0.1); Basophils % 0.8 %; Eosinophils # 0.2 10^3/uL (0.0-0.8); Eosinophils % 2.2 %; Lymphocytes # 3.9 10^3/uL (0.8-4.8); Lymphocytes % 35.5 %; Mean Corpuscular HGB Conc 35.5 g/dL (30-55); Mean Corpuscular Hemoglobin 32.7 pg (27-33); Mean Corpuscular Volume 92.2 fl (82-101); Mean Platelet Volume 9.3 fL (7.4-10.4); Monocytes # 0.9 10^3/uL (0.2-0.9); Monocytes % 8.1 %; Neutrophils # 5.46 10^3/uL (1.8-7.7); Neutrophils % 49.7 %; Nucleated Red Blood Cells % 0 %; Platelet Count 189 10^3/cmm (157-399); Red Cell Distribution Width 12.4 % (12.1-15.1); White Blood Count 10.99 10^3/uL (3.29-11.43)
[2024-04-06 11:21] LABS: Alanine Aminotransferase 29 U/L (0-41); Alkaline Phosphatase 55 U/L (40-130); Aspartate Amino Transferase 18 U/L (0-40); Blood Urea Nitrogen 12 mg/dL (6-20); Calcium 8.7 mg/dL (8.5-10.5); Carbon Dioxide 25 mmol/L (22-29); Chloride 101 mmol/L (98-107); Creatinine Clr Calc Pharmacy 124.8222; Globulin 2.5 g/dL (1.3-4.6); Glomerular Filtration Rate 93.5 mL/min (90-130); Glucose 93 mg/dL (65-115); Osmolality Calculated 279 mOsm/kg (285-295); Sodium 135 mmol/L (136-145); Total Bilirubin 0.4 mg/dL (0.15-1.2); Total Protein 6.5 g/dL (6.6-8.7)
[2024-04-06 11:24] LABS: Anion Gap 13.1 (5-19); Potassium 4.1 mmol/L (3.5-5.1)
[2024-04-06 12:25] LABS: Bilirubin Urine Negative (Negative); Blood Urine Negative (Negative); Glucose Urine UA Negative (Normal); Ketones Urine Negative (Negative); Leukocyte Esterase Urine Negative (Negative); Nitrate Urine Negative (Negative); Protein Urine Negative (Negative); Specific Gravity, Urine 1.021 (1.005-1.030); Urine Appearance Clear (CLEAR); Urine Color Yellow (Yellow); pH Urine 7.5 (5-7)
[2024-04-06 12:31] LABS: Add Urine Microscopic? YES; Bacteria Urine None Seen /hpf; Hyaline Casts Urine 0-4 /lpf; RBC Urine 0-2 /hpf (0-2); Squamous Epithelial Cell Urine 0-5 /hpf (0-5); WBC Urine 0-5 /hpf (0-5)
[2024-04-06 12:34] VITALS: BP 133/78; PULSE 70; O2SAT 92
[2024-04-06 13:20] VITALS: BP 125/91; PULSE 57; O2SAT 94
[2024-04-06 13:27] LABS: Covid PCR NEGATIVE (Negative); Influenza A NEGATIVE (Negative); Influenza B NEGATIVE (Negative); Respiratory Syncytial Virus Ce NEGATIVE (Negative)
[2024-04-06 13:43] VITALS: BP 125/91; PULSE 74; O2SAT 96
== END 2024-04-06 13:45 | disposition home or self-care (01) ==
PROVIDERS: Emergency Provider Family Medicine; PCP Family Medicine
DX: K52.9 Noninfective gastroenteritis and colitis, unspecified (principal); Z11.52 Encounter for screening for COVID-19; Z87.891 Personal history of nicotine dependence; J44.89 Other specified chronic obstructive pulmonary disease
CPT/HCPCS: 0241U; 71045; 80053; 81001; 85025; 96374; 96375; 99284; J0780; J1885

== ENCOUNTER 2024-09-11 16:22 | Emergency (ER) | payer BC, MEDICAID, SELFPAY ==
--- NOTE | 2024-09-11 16:27 | XRR_ITS ---
PROCEDURE INFORMATION: Exam: XR Left Knee Exam date and time: 09/11/2024 4:59 PM Age: 39 years old Clinical indication: Pain; Knee; Left; Additional info: Injury TECHNIQUE: Imaging protocol: Radiologic exam of the left knee. Views: 3 views. COMPARISON: No relevant prior studies available. FINDINGS: Bones/joints: Normal. Soft tissues: Normal. XR/XR knee LT 3V* [id number] IMPRESSION: No acute findings.
[2024-09-11 16:38] VITALS: BP 137/76; PULSE 74; RESP 18; TEMP 36.7; O2SAT 96; BMI 31.0
--- NOTE | 2024-09-11 17:06 | W.ED.EXTPRO ---
HPI - Extremity Problem General: Chief complaint: Extremity Injury, Lower Stated complaint: lt knee inj Time Seen by Provider: 09/11/24 16:42 History of Present Illness: Selected Entries 09/11/24 16:38 ED Triage Comment Pt arrives with c/ o left knee pain. Pt denies trauma t o his knee. Pt sta lisa he has been ta [facility] vargas and sabrina w ith no relief. Patient is a 39-year-old gentleman that awoke yesterday a.m. with left knee pain. Denied any trauma. Self-treatment as noted in triage. Continue to has worsening pain with ambulation. No fevers. No sick contact. No previous procedures to left knee. Associated symptoms: Deny chest pain or fever(s) Related Data Previous Rx's ?Medication ?Instructions ?Recorded dicyclomine 10 mg capsule 10 mg PO TID PRN abdominal pain 03/06/24 #30 caps duloxetine 60 mg capsule,delayed 120 mg (2 x 60 mg) PO DAILY #60 03/27/24 release (Cymbalta) caps trazodone 100 mg tablet 400 mg (4 x 100 mg) PO .HS PRN 03/27/24 insomnia #120 tabs varenicline tartrate 1 mg tablet 1 mg PO BID #56 tabs 03/27/24 CPAP mask, tubing, supplies #1 ea 04/10/24 budesonide-formoterol HFA 160 2 puff inhalation BID #10.2 grams 04/10/24 mcg-4.5 mcg/actuation aerosol inhaler (Symbicort) gabapentin 300 mg capsule 300 mg PO TID #180 caps 04/10/24 metoprolol succinate 50 mg 50 mg PO DAILY #30 tabs 04/10/24 tablet,extended release 24 hr nebulizer and equipment #1 ea 04/10/24 amitriptyline 25 mg tablet 25 mg PO DAILY #30 tabs 05/19/24 sumatriptan succinate 25 mg tablet See Rx Instructions .Route 05/19/24 .COMPLEX #9 ea chlorhexidine gluconate 0.12 % 15 ml mucous membrane BID #118 mL 06/03/24 mouthwash guaifenesin 1,200 mg tablet, 1,200 mg PO BID for mucus #20 tabs 06/03/24 extended release 12 hr (Mucinex) CPAP 8-12cm mmHg setting with mask #1 ea 06/24/24 and supplies nicotine 21 mg/24 hr daily 1 patch transdermal DAILY #28 ea 07/01/24 transdermal patch azithromycin 250 mg tablet See Rx Instructions PO .COMPLEX #6 07/06/24 tabs fluticasone propionate 50 1 spray intranasal BID #16 grams 07/06/24 mcg/actuation nasal spray,suspension (Flonase Allergy Relief) albuterol sulfate 90 mcg/actuation 1 inh inhalation QID PRN shortness 08/10/24 aerosol inhaler of breath or wheezing #8.5 grams ipratropium 0.5 mg-albuterol 3 mg 3 ml inhalation Q4H PRN Shortness 08/10/24 (2.5 mg base)/3 mL nebulization Of Breath #90 mL soln omeprazole 40 mg capsule,delayed 40 mg PO DAILY #90 caps 08/10/24 release ondansetron 4 mg disintegrating 4 mg PO Q8H PRN nausea and 09/01/24 tablet vomiting #30 tabs celecoxib 200 mg capsule 200 mg PO DAILY #30 caps 09/11/24 Allergies Allergy/AdvReac Type Severity Reaction Status Date / Time No Known Allergies Allergy Verified 07/03/24 15:54 Review of Systems General: Reports: 10 or more systems reviewed and unremarkable except in HPI and below Const: Denies: fever(s) or chills Card: Denies: chest pain or palpitations Resp: Denies: dyspnea or productive cough GI: Denies: abdominal pain, nausea or vomiting : Denies: flank pain or difficulty urinating Musc: Reports: extremity pain, joint pain, joint stiffness and limited range of motion; Denies: neck pain, back pain, joint swelling, joint redness, joint warmth or muscle weakness Neuro: Denies: headache(s) or dizziness Psych: Denies: anxiety or depression Endo: Denies: polyuria or polydipsia Enrique/Lymph: Denies: easy bruising or easy bleeding PFS ED PFSH: Medical History (Updated 09/11/24 @ 18:16 by AMAYA Lopes) Psychiatric care Gastroenteritis Carpal tunnel syndrome, bilateral upper limbs Tobacco use disorder Irritable bowel Generalized anxiety disorder Major depressive disorder, recurrent severe without psychotic features Post-traumatic stress disorder, chronic Migraine headache MIKE (obstructive sleep apnea) Asthma-COPD overlap syndrome Mood swings Difficulty controlling anger Anxiety and depression Hypertension Acid reflux Diarrhea Bloated abdomen Acquired phimosis of penis Lower urinary tract symptoms (LUTS) Restrictive lung disease Surgical History Status post routine circumcision Family History Family/Other CAD (coronary artery disease) Hypertension Lung disease Social History Smoking and tobacco/nicotine status: current every day tobacco/nicotine user Quit status (tobacco/nicotine): has quit using Year quit tobacco: dec 30, 2013 Former quit date comment: [id number] Second hand smoke exposure: Yes Alcohol intake: current Alcohol intake frequency: holidays/special occasions only Substance/Drug Use: never Lives independently: Yes Household members: spouse Housing: House Marital status: service: No Current occupational status: employed Pets and animals: No Do you think of yourself as: Straight/Heterosexual Current gender identity: Male Physical Exam Const: COMMON NORMALS: patient oriented x3 Resp: COMMON NORMALS: normal respiratory effort and clear to auscultation bilaterally EFFORT & INSPECTION: Yes symmetric chest movement AUSCULTATION: clear to auscultation bilaterally Cardio: COMMON NORMALS: S1 normal heart sound present and S2 normal heart sound present HEART SOUNDS: S1 normal heart sound present and S2 normal heart sound present : COMMON NORMALS: Yes no CVA tenderness BLADDER/KIDNEY EXAM: Yes no CVA tenderness Back/Pelvis: COMMON NORMALS: no CVA tenderness Extremity: COMMON NORMALS: no pedal edema GENERAL: No edema LEFT LOWER EXTREMITY: Yes knee joint Left knee: Yes inspection (as compared to right knee, minimal warmth), Yes ROM (decreased due to pain) and Yes special tests Left knee special tests: Anterior Danielle test: Negative, Posterior Danielle test: Negative, Valgus stress test: Negative and Varus stress test: Negative Neuro: COMMON NORMALS: patient oriented x3 and CN's II-XII intact bilaterally Course Vital Signs: Vital signs: Vital Signs Temperature 98.0 F 09/11/24 16:38 Pulse Rate 74 09/11/24 16:38 Respiratory Rate 18 09/11/24 16:38 Blood Pressure 137/76 09/11/24 16:38 Pulse Oximetry 96 09/11/24 16:38 Oxygen Delivery Me thod Room Air 09/11/24 16:38 MDM - Extremity (Nontraumatic) Medical Decision Making Patient is a 39-year-old male with awakening left knee pain. He denied any injury to this knee. Will obtain routine x-ray for further decision-making. Lab Data Radiology Impressions Knee X-Ray 09/11/24 16:27 IMPRESSION: No acute findings. XR interpretation done by ED provider, pending radiology final review ED provider radiology interpretation(s): No acute findings Discharge Plan Discharge Patient Disposition: Home Clinical Impression: Acute pain of left knee Condition: Stable Prescriptions: New celecoxib 200 mg capsule 200 mg PO DAILY Qty: 30 0RF No Action trazodone 100 mg tablet 400 mg PO .HS PRN (Reason: insomnia) Qty: 120 11RF duloxetine [Cymbalta] 60 mg capsule,delayed release(DR/EC) 120 mg PO DAILY Qty: 60 11RF varenicline tartrate 1 mg tablet 1 mg PO BID Qty: 56 11RF amitriptyline 25 mg tablet 25 mg PO DAILY Qty: 30 1RF sumatriptan succinate 25 mg tablet See Rx Instructions .ROUTE .COMPLEX Qty: 9 2RF Dose Instruction: TAKE 1 TABLET AT ONSET OF HEADACHE FOR 30 DAYS; IF no RELIEF MAY REPEAT 1 TABLET AFTER AT least 2 HOURS; max = 4 tabs/24 HOUR BY MOUTH] Rx Instructions: TAKE 1 TABLET AT ONSET OF HEADACHE FOR 30 DAYS; IF no RELIEF MAY REPEAT 1 TABLET AFTER AT least 2 HOURS; max = 4 tabs/24 HOUR BY MOUTH] azithromycin 250 mg tablet See Rx Instructions PO .COMPLEX Qty: 6 0RF Rx Instructions: take 500 mg today (day 1), then 250 mg for 4 days (days 2-5) PO fluticasone propionate [Flonase Allergy Relief] 50 mcg/actuation spray,suspension 1 spray intranasal BID Qty: 16 0RF Rx Instructions: administer into each nostril dicyclomine 10 mg capsule 10 mg PO TID PRN (Reason: abdominal pain) Qty: 30 1RF budesonide-formoterol [Symbicort] 160-4.5 mcg/actuation HFA aerosol inhaler 2 puff INHALATION BID Qty: 10.2 3RF metoprolol succinate 50 mg tablet extended release 24 hr 50 mg PO DAILY Qty: 30 1RF gabapentin 300 mg capsule 300 mg PO TID Qty: 180 1RF (DME) CPAP mask, tubing, supplies See Rx Instructions .ROUTE .MEDSUPPLY Qty: 1 1RF Rx Instructions: As directed (DME) nebulizer and equipment See Rx Instructions .Route .MEDSUPPLY Qty: 1 0RF Rx Instructions: As directed guaifenesin [Mucinex] 1,200 mg tablet extended release 12hr 1,200 mg PO BID Qty: 20 0RF chlorhexidine gluconate 0.12 % mouthwash 15 ml mucous membrane BID Qty: 118 0RF (DME) CPAP 8-12cm mmHg setting with mask and supplies See Rx Instructions .ROUTE .MEDSUPPLY Qty: 1 0RF Rx Instructions: As directed nicotine 21 mg/24 hr patch 24 hour 1 patch transdermal DAILY Qty: 28 2RF albuterol sulfate 90 mcg/actuation HFA aerosol inhaler 1 inh inhalation QID PRN (Reason: shortness of breath or wheezing) Qty: 8.5 2RF ipratropium-albuterol 0.5 mg-3 mg(2.5 mg base)/3 mL solution for nebulization 3 ml inhalation Q4H PRN (Reason: Shortness Of Breath) Qty: 90 2RF omeprazole 40 mg capsule,delayed release(DR/EC) 40 mg PO DAILY Qty: 90 1RF Rx Instructions: TAKE 1 CAPSULE BY MOUTH DAILY ondansetron 4 mg tablet,disintegrating 4 mg PO Q8H PRN (Reason: nausea and vomiting) Qty: 30 0RF Discharge Orders: Discharge ED (Routine); Ordered 09/11/24 Ordered By: Tierney Sandoval Referrals: Miguel Kee MD [Primary Care Provider, Family Practice] Discharge Diet: Usual diet Discharge Activity: Increase activity as tolerated Patient Instructions: Knee Pain (ED) Activity Restrictions/Additional Instructions: Wrapped left lower extremity with Johann wrap as tolerated. You may continue your [id number] rub onto the left knee. Call your primary care physician on Saturday for follow-up. Ice your left knee and elevate. If you have ongoing knee pain, return to ED. Print Language: Qatari Coding Level of Care Code ED Engineering Designer for Jeanine Clemente
[2024-09-11] MEDS: ketorolac 30 mg/mL INJ 15 MG IM (18:21)
[2024-09-11] MEDS: orphenadrine 30 mg/mL Inj 2 mL 60 MG IM (18:21)
[2024-09-11 18:44] VITALS: BP 137/79; PULSE 68; O2SAT 95
== END 2024-09-11 18:48 | disposition home or self-care (01) ==
PROVIDERS: Emergency Provider Physician Assistant; PCP Family Medicine
DX: M25.562 Pain in left knee (principal); G47.33 Obstructive sleep apnea (adult) (pediatric); F17.200 Nicotine dependence, unspecified, uncomplicated; I10 Essential (primary) hypertension; Z79.899 Other long term (current) drug therapy
CPT/HCPCS: 73562; 96372; 99284; J1885; J2360

== ENCOUNTER → 2024-10-30 13:39 | Outpatient (BNVA) | payer BC, MEDICAID, SELFPAY | PROVIDERS: PCP Family Medicine; Visit Provider Family Medicine | DX: B35.1 Tinea unguium (principal) | CPT/HCPCS: 80053 ==

== ENCOUNTER 2024-11-15 15:23 | Emergency (ER) | payer BC, MEDICAID, SELFPAY ==
--- OUTSIDE RECORDS SUMMARY | 2024-11-15 15:28 | XMS_ITS | Clinical Summary ---
Author Organization [facility] [address] [facility] Address [address] [place] [address] Phone Care Team Providers Care Timber Incisor Operator Name Role Phone Nisha Austin Primary Care Provider [phone] Allergies No known active allergies Medications gabapentin (NEURONTIN) 300 mg capsule Take 300 mg by mouth 3 times daily. Active temazepam (RESTORIL) 15 mg capsule Take 15 mg by mouth nightly as needed for Insomnia. Active venlafaxine (EFFEXOR XR) 150 mg Extended Release 24 hour capsule Take 150 mg by mouth daily. Active nortriptyline (AVENTYL) 10 mg/5 mL Solution Take 100 mg by mouth daily. Active omeprazole (PriLOSEC) 40 mg Capsule, Delayed Release(E.C.) Take 40 mg by mouth daily. Active meloxicam (MOBIC) 15 mg tablet Take 15 mg by mouth daily. Active losartan (COZAAR) 25 mg tablet Take 25 mg by mouth daily. Active montelukast (SINGULAIR) 10 mg tablet Take 10 mg by mouth daily at bedtime. Active metoprolol tartrate (LOPRESSOR) 50 mg tablet Take 50 mg by mouth 2 times daily. Active tiZANidine (ZANAFLEX) 4 mg Capsule Take 4 mg by mouth. Active metoprolol tartrate (LOPRESSOR) 50 mg tablet Take 50 mg by mouth 2 times daily. 0 Active budesonide-form oteroL (SYMBICORT) 160-4.5 mcg/actuation HFA Aerosol Inhaler Take 2 Puffs by inhalation 2 times daily. 0 Active albuterol sulfate 90 mcg/Actuation inhaler Take 2 Puffs by inhalation every 6 hours as needed for Shortness of Breath. 0 Active promethazine (PHENERGAN) 25 mg tablet Take 25 mg by mouth every 6 hours as needed for Nausea/Emesis. 0 Active omeprazole (PriLOSEC) 40 mg Capsule, Delayed Release(E.C.) Take 40 mg by mouth daily. 0 Active dextromethorpha n-guaiFENesin (MUCINEX DM) 30-600 mg Tablet Sustained Release 12HR Take 1 Tablet by mouth every 12 hours. 0 Active zolpidem (AMBIEN) 10 mg tablet Take 10 mg by mouth nightly as needed for Insomnia. 0 Active montelukast (SINGULAIR) 10 mg tablet Take 10 mg by mouth daily at bedtime. 0 Active meloxicam (MOBIC) 15 mg tablet Take 15 mg by mouth daily. 0 Active losartan (COZAAR) 25 mg tablet Take 25 mg by mouth daily. 0 Active nortriptyline (PAMELOR) 75 mg capsule Take 100 mg by mouth daily at bedtime. 0 Active Active Problems Problem Noted Date Diagnosed Date Severe allergic reaction 01/09/2022 Bee sting 01/09/2022 Encounters Date Type Department Care Team Description 11/04/2024 External Device Data [facility] ABSTRACTION Provider, Abstract 11/04/2024 External Device Data [facility] ABSTRACTION Provider, Abstract 11/03/2024 External Device Data [facility] ABSTRACTION Provider, Abstract 10/27/2024 External Device Data [facility] ABSTRACTION Provider, Abstract 10/13/2024 External Device Data [facility] ABSTRACTION Provider, Abstract 10/07/2024 External Device Data [facility] ABSTRACTION Provider, Abstract 09/01/2024 External Device Data [facility] ABSTRACTION Provider, Abstract 09/01/2024 External Device Data [facility] ABSTRACTION Provider, Abstract from Last 3 Months Social History Tobacco Use Types Packs/Day Years Used Date Smoking Tobacco: Some Days Cigarettes Smokeless Tobacco: Never Tobacco Cessation:Ready to Q uit: Not Asked; Counseling Given: Not Answered Alcohol Use Standard Drinks/Week Comments Yes 0 (1 standard drink = 0.6 oz pur e alcohol) occasionally Sex and Gender Information Value Date Recorded Sex Assigned at Not on file 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 Gender Identity Not on file Sexual Orientation Not on file Last Filed Vital Signs Vital Sign Reading Time Taken Comments Blood Pressure 127/68 02/04/2024 3:15 PM CDT Pulse 67 02/04/2024 3:15 PM CDT Temperature 36.1 C (96.9 F) 02/04/2024 1:19 PM CDT Respiratory Rate 18 02/04/2024 1:19 PM CDT Oxygen Saturation 98% 02/04/2024 3:15 PM CDT Inhaled Oxygen Concentration - - Weight 91.8 kg (202 lb 6.4 oz) 02/04/2024 1:19 P M CDT Height 175.3 cm (5' 9 ) 02/04/2024 1:19 PM CDT Body Mass Index 29.89 02/04/2024 1:19 PM CDT Plan of Treatment Health Maintenance Due Date Last Done Comments Pre-Diabetes and Diabetes Screening 1983 HPV VACCINES (1 - Male 3-dose series) 1998 DTAP/TDAP/TD VACCINES (1 - Tdap) 2002 HEPATITIS B VACCINES (1 of 3 - 19+ 3-dose series) 07/2002 INFLUENZA VACCINE (#1) 2024 Abdominal Aortic Aneurysm (AAA) Screening Completed 08/15/2023 Procedures Procedure Name Priority Date/Time Associated Diagnosis Comments CT ABDOMEN PELVIS WO CONTRAST Stat 08/15/2023 1:34 PM CDT from Last 3 Months or Most Recently Relevant to Health Maintenance Results * CT ABDOMEN PELVIS WO CONTRAST (08/15/2023 1:34 PM CDT) Anatomical Region Laterality Modality Abdomen Computed Tomogra phy 08/15/2023 1:35 PM CDT Impressions 08/15/2023 1:52 PM CDT IMPRESSION: No acute abnormalities in the abdomen or pelvis. Narrative 08/15/2023 1:52 PM CDT EXAM: CT scan of the abdomen and pelvis without IV contrast. One or more of the following dose reduction techniques were utilized: automated exposure control[AEC], adjustment of mA and/or KV according to patient size, use of iterative reconstruction technique, CT scan done according to ALARA or ALARA image gently. HISTORY: Abdominal pain, acute, nonlocalized COMPARISON: None FINDINGS: No renal, ureteral or bladder calculi. No hydronephrosis. Normal appendix. No free fluid in the abdomen or pelvis. No free intraperitoneal air. No dilated or thickened loops of small bowel or colon. Liver, kidneys, spleen, pancreas and adrenal glands are negative other than listed above within the limitations of non-contrast CT. No lymphadenopathy in the abdomen or pelvis. Remainder unremarkable. Procedure Note Miguel Mesa MD - 08/15/2023 EXAM: CT scan of the abdomen and pelvis without IV contrast. One or more of the following dose reduction techniques were utilized: automated exposure control[AEC], adjustment of mA and/or KV according to patient size, use of iterative reconstruction technique, CT scan done according to ALARA or ALARA image gently. HISTORY: Abdominal pain, acute, nonlocalized COMPARISON: None FINDINGS: No renal, ureteral or bladder calculi. No hydronephrosis. Normal appendix. No free fluid in the abdomen or pelvis. No free intraperitoneal air. No dilated or thickened loops of small bowel or colon. Liver, kidneys, spleen, pancreas and adrenal glands are negative other than listed above within the limitations of non-contrast CT. No lymphadenopathy in the abdomen or pelvis. Remainder unremarkable. IMPRESSION: No acute abnormalities in the abdomen or pelvis. Keli Suarez MD CT ORDERABLES Final Result from Last 3 Months or Most Recently Relevant to Health Maintenance Insurance [facility] MEDICAID Care Teams Timber Incisor Operator Relationship Specialty Start Date End Date AustinNisha nixon FNP [address] [place] [address] PCP - General Nurse Practitioner Family 12/30/20
[2024-11-15 15:35] VITALS: BP 146/97; PULSE 75; RESP 16; TEMP 36.9; O2SAT 98
[2024-11-15 16:39] LABS: Hematocrit 48.3 % (37-53); Hemoglobin 17.10 g/dL (11.27-16.99); Mean Corpuscular HGB Conc 35.4 g/dL (30-55); Mean Corpuscular Hemoglobin 32.6 pg (27-33); Mean Corpuscular Volume 92.0 fl (82-101); Nucleated Red Blood Cells % 0 %; Platelet Count 216 10^3/cmm (157-399); Red Blood Count 5.25 10^6/uL (3.85-5.65); White Blood Count 10.69 10^3/uL (3.29-11.43)
[2024-11-15 16:52] LABS: INR 0.93 (0.8-1.2); Prothrombin Time 13.10 SECONDS (12.1-14.9)
[2024-11-15 16:55] LABS: Alanine Aminotransferase 51 U/L (0-41); Albumin Level 4.3 g/dL (3.5-5.2); Alkaline Phosphatase 60 U/L (40-130); Anion Gap 15.9 (5-19); Aspartate Amino Transferase 25 U/L (0-40); Blood Urea Nitrogen 10 mg/dL (6-20); Calcium 8.8 mg/dL (8.5-10.5); Carbon Dioxide 22 mmol/L (22-29); Chloride 102 mmol/L (98-107); Creatinine Clr Calc Pharmacy 120.1884; Globulin 2.9 g/dL (1.3-4.6); Glucose 85 mg/dL (65-115); Lipase 17 U/L (13-60); Osmolality Calculated 280 mOsm/kg (285-295); Potassium 3.9 mmol/L (3.5-5.1); Sodium 136 mmol/L (136-145); Total Protein 7.2 g/dL (6.6-8.7)
--- NOTE | 2024-11-15 17:21 | ECG_ITS ---
[facility]24[facility] Pat Name: Marty Stanton Department: Room: Gender: Male Statement Distribution Clerk: : 1985 Requested By: Anayeli Soria Order Number: [id number] Liseth MD: TYRA WILCOX Measurements Intervals Collins Rate: 73 P: 28 AK: 164 QRS: 33 QRSD: 102 T: 49 QT: 376 QTc: 416 Interpretive Statements SINUS RHYTHM INCOMPLETE RIGHT BUNDLE BRANCH BLOCK [90+ ms QRS DURATION, TERMINAL R IN V1/V2, 40+ ms S IN I/aVL/V4/V5/V6] Compared to ECG 05/03/2020 17:36:13 No significant changes Electronically Signed On 11-19-2024 22:26:32 CDT by TYRA WILCOX [email or web address]
--- NOTE | 2024-11-15 17:25 | XRR_ITS ---
PROCEDURE INFORMATION: Exam: XR Chest Exam date and time: 11/15/2024 5:32 PM Age: 39 years old Clinical indication: Shortness of breath; Additional info: SOB TECHNIQUE: Imaging protocol: Radiologic exam of the chest. Views: 1 view. COMPARISON: CR XR chest 1V portable [id number] 04/06/2024 7:40 AM FINDINGS: Lungs: Unremarkable. No consolidation. Pleural spaces: Unremarkable. No pleural effusion. No pneumothorax. Heart/Mediastinum: Unremarkable. No cardiomegaly. Bones/joints: Unremarkable. XR/XR chest 1V portable [id number] IMPRESSION: No acute findings.
--- NOTE | 2024-11-15 17:39 | W.ED.ABDPA2 ---
Documented by User: Anayeli Soria MD 11/15/24 17:40 HPI - Abdominal Pain General: Chief Complaint: Abdominal Pain Stated Complaint: Stomach pain, tarry stools, feels faint Time Seen by Provider: 11/15/24 17:35 Source: patient Mode of arrival: ambulatory Limitations: no limitations History of Present Illness: 39-year-old male who is here with multiple complaints states over the last 5 to 6 days he has not been feeling well. States he has been having cough congestion symptom mild shortness of breath and chest pain states he also said abdominal cramping with vomiting and diarrhea. He denies any fevers vital signs here are normal. Denies any worse improved factors Associated Symptoms: Reports diarrhea, nausea and vomiting; Denies chills, dysuria and fever(s) Related Data Previous Rx's ?Medication ?Instructions ?Recorded dicyclomine 10 mg capsule 10 mg PO TID PRN abdominal pain 03/06/24 #30 caps duloxetine 60 mg capsule,delayed 120 mg (2 x 60 mg) PO DAILY #60 03/27/24 release (Cymbalta) caps trazodone 100 mg tablet 400 mg (4 x 100 mg) PO .HS PRN 03/27/24 insomnia #120 tabs CPAP mask, tubing, supplies #1 ea 04/10/24 budesonide-formoterol HFA 160 2 puff inhalation BID #10.2 grams 04/10/24 mcg-4.5 mcg/actuation aerosol inhaler (Symbicort) gabapentin 300 mg capsule 300 mg PO TID #180 caps 04/10/24 metoprolol succinate 50 mg 50 mg PO DAILY #30 tabs 04/10/24 tablet,extended release 24 hr nebulizer and equipment #1 ea 04/10/24 chlorhexidine gluconate 0.12 % 15 ml mucous membrane BID #118 mL 06/03/24 mouthwash guaifenesin 1,200 mg tablet, 1,200 mg PO BID for mucus #20 tabs 06/03/24 extended release 12 hr (Mucinex) CPAP 8-12cm mmHg setting with mask #1 ea 06/24/24 and supplies fluticasone propionate 50 1 spray intranasal BID #16 grams 07/06/24 mcg/actuation nasal spray,suspension (Flonase Allergy Relief) albuterol sulfate 90 mcg/actuation 1 inh inhalation QID PRN shortness 04/21/25 aerosol inhaler of breath or wheezing #8.5 grams ipratropium 0.5 mg-albuterol 3 mg 3 ml inhalation Q4H PRN Shortness 08/10/24 (2.5 mg base)/3 mL nebulization Of Breath #90 mL soln omeprazole 40 mg capsule,delayed 40 mg PO DAILY #90 caps 08/10/24 release celecoxib 200 mg capsule 200 mg PO DAILY #30 caps 09/11/24 sumatriptan succinate 25 mg tablet See Rx Instructions .Route 10/02/24 .COMPLEX #9 ea ondansetron 4 mg disintegrating 4 mg PO Q8H PRN nausea and 10/29/24 tablet vomiting #30 tabs amitriptyline 50 mg tablet 50 mg PO DAILY #90 tabs 10/30/24 amoxicillin 500 mg tablet 500 mg PO BID #14 tabs 10/30/24 terbinafine HCl 250 mg tablet 250 mg PO DAILY #60 tabs 10/30/24 metoclopramide HCl 10 mg tablet 10 mg PO Q6H #10 tabs 11/15/24 (Reglan) sucralfate 1 gram tablet 1 g PO TID 4 weeks #84 tabs 11/15/24 Allergies Allergy/AdvReac Type Severity Reaction Status Date / Time grass pollen Allergy Unknown rash Verified 11/12/24 07:16 Review of Systems Const: Reports: fatigue; Denies: fever(s), chills, body aches or change in appetite ENMT: Denies: throat pain or dental pain Card: Denies: chest pain Resp: Reports: dyspnea GI: Reports: abdominal pain, nausea, vomiting and diarrhea : Denies: dysuria Musc: Denies: neck pain or back pain Skin/Breast: Denies: rash Neuro: Denies: headache(s) PFSH ED PFSH: Medical History Psychiatric care Gastroenteritis Carpal tunnel syndrome, bilateral upper limbs Tobacco use disorder Irritable bowel Generalized anxiety disorder Major depressive disorder, recurrent severe without psychotic features Post-traumatic stress disorder, chronic Migraine headache MIKE (obstructive sleep apnea) Asthma-COPD overlap syndrome Mood swings Difficulty controlling anger Anxiety and depression Hypertension Acid reflux Diarrhea Bloated abdomen Acquired phimosis of penis Lower urinary tract symptoms (LUTS) Restrictive lung disease Surgical History Status post routine circumcision Family History Family/Other CAD (coronary artery disease) Hypertension Lung disease Social History Smoking and tobacco/nicotine status: current every day tobacco/nicotine user Quit status (tobacco/nicotine): has quit using Year quit tobacco: dec 30, 2013 Former quit date comment: [id number] Second hand smoke exposure: Yes Alcohol intake: current Alcohol intake frequency: holidays/special occasions only Substance/Drug Use: never Lives independently: Yes Household members: spouse Housing: House Marital status: service: No Current occupational status: employed Pets and animals: No Do you think of yourself as: Straight/Heterosexual Current gender identity: Male Physical Exam Const: COMMON NORMALS: no acute distress, patient oriented x3 and healthy appearing HENMT: COMMON NORMALS: normocephalic and atraumatic HEAD & SCALP: normocephalic and atraumatic Eye: COMMON NORMALS: conjunctivae normal CONJUNCTIVA: Yes conjunctivae normal Neck/C-Spine: COMMON NORMALS: full ROM and supple Chest: COMMONS NORMALS: normal inspection of the chest Resp: COMMON NORMALS: normal respiratory effort, No retractions, No use of accessory muscles and clear to auscultation bilaterally AUSCULTATION: clear to auscultation bilaterally Cardio: COMMON NORMALS: regular rate, regular rhythm and No murmurs present (Cardio) RATE: regular rate RHYTHM: regular rhythm GI: COMMON NORMALS: Normal to inspection, nondistended, normoactive bowel sounds present, Soft to palpation, non-tender and no masses PALPATION: Yes Soft to palpation Extremity: COMMON NORMALS: normal to inspection and full ROM Neuro: COMMON NORMALS: patient oriented x3, moves all extremities and no focal motor deficits Psych: COMMON NORMALS: mental status grossly normal, Normal thought process present and cooperative THOUGHT PROCESS: Normal thought process present Skin: COMMON NORMALS: no rashes or lesions noted and no wounds GENERAL SKIN EXAM: no rashes or lesions noted Course Vital Signs: Vital signs: Vital Signs Temperature 98.5 F 11/15/24 15:35 Pulse Rate 70 11/15/24 19:26 Respiratory Rate 16 11/15/24 19:26 Blood Pressure 148/92 11/15/24 19:26 Pulse Oximetry 98 11/15/24 19:26 Oxygen Delivery Me thod Room Air 11/15/24 15:35 MDM - Abdominal Pain Lab Data 11/15/24 16:34 11/15/24 16:34 Labs/Radiology: Radiology Impressions Chest X-Ray 11/15/24 17:25 IMPRESSION: No acute findings. Laboratory Results WBC 10.69 10^3/uL (3.29-11.43) 11/15/24 16:34 RBC 5.25 10^6/uL (3.85-5.65) 11/15/24 16:34 Hgb 17.10 g/dL (11.27-16.99) H 11/15/24 16:34 Hct 48.3 % (37-53) 11/15/24 16:34 MCV 92.0 fl (82-101) 11/15/24 16:34 MCH 32.6 pg (27-33) 11/15/24 16:34 MCHC 35.4 g/dL (30-55) 11/15/24 16:34 RDW 12.2 % (12.1-15.1) 11/15/24 16:34 Plt Count 216 10^3/cmm (157-399) 11/15/24 16:34 MPV 9.5 fL (7.4-10.4) 11/15/24 16:34 Neut % (Auto) 58.1 % 11/15/24 16:34 Lymph % (Auto) 29.1 % 11/15/24 16:34 [place] % (Auto) 8.6 % 11/15/24 16:34 Eos % (Auto) 2.9 % 11/15/24 16:34 Baso % (Auto) 0.7 % 11/15/24 16:34 Neut # (Auto) 6.21 10^3/uL (1.8-7.7) 11/15/24 16:34 Lymph # (Auto) 3.1 10^3/uL (0.8-4.8) 11/15/24 16:34 [place] # (Auto) 0.9 10^3/uL (0.2-0.9) 11/15/24 16:34 Eos # (Auto) 0.3 10^3/uL (0.0-0.8) 11/15/24 16:34 Baso # (Auto) 0.1 10^3/uL (0.0-0.1) 11/15/24 16:34 Nucleated RBC % (auto) 0 % 11/15/24 16:34 Nucleated RBCs # 0.0 /100WBC 11/15/24 16:34 PT 13.10 SECONDS (12.1-14.9) 11/15/24 16:34 INR 0.93 (0.8-1.2) 11/15/24 16:34 Sodium 136 mmol/L (136-145) 11/15/24 16:34 Potassium 3.9 mmol/L (3.5-5.1) 11/15/24 16:34 Chloride 102 mmol/L (98-107) 11/15/24 16:34 Carbon Dioxide 22 mmol/L (22-29) 11/15/24 16:34 Anion Gap 15.9 (5-19) 11/15/24 16:34 BUN 10 mg/dL (6-20) 11/15/24 16:34 Creatinine 0.9 mg/dL (0.7-1.2) 11/15/24 16:34 GFR Calculation 93.0 mL/min (90-130) 11/15/24 16:34 Glucose 85 mg/dL (65-115) 11/15/24 16:34 Calculated Osmolality 280 mOsm/kg (285-295) L 11/15/24 16:34 Calcium 8.8 mg/dL (8.5-10.5) 11/15/24 16:34 Total Bilirubin 0.6 mg/dL (0.15-1.2) 11/15/24 16:34 AST 25 U/L (0-40) 11/15/24 16:34 ALT 51 U/L (0-41) H 11/15/24 16:34 Alkaline Phosphatase 60 U/L (40-130) 11/15/24 16:34 Troponin T Baseline < 6 ng/L (0-15) 11/15/24 16:34 Total Protein 7.2 g/dL (6.6-8.7) 11/15/24 16:34 Albumin 4.3 g/dL (3.5-5.2) 11/15/24 16:34 Globulin 2.9 g/dL (1.3-4.6) 11/15/24 16:34 Lipase 17 U/L (13-60) 11/15/24 16:34 Influenza A (PCR) Negative (Negative) 11/15/24 18:21 Influenza Type B (PCR) Negative (Negative) 11/15/24 18:21 RSV (PCR) Negative (Negative) 11/15/24 18:21 SARS-CoV-2 (PCR) Negative (Negative) 11/15/24 18:21 Discharge Plan Discharge Patient Disposition: Home Clinical Impression: Gastroenteritis Condition: Stable Prescriptions: New sucralfate 1 gram tablet 1 g PO TID 28 Days Qty: 84 0RF metoclopramide HCl [Reglan] 10 mg tablet 10 mg PO Q6H Qty: 10 0RF No Action trazodone 100 mg tablet 400 mg PO .HS PRN (Reason: insomnia) Qty: 120 11RF duloxetine [Cymbalta] 60 mg capsule,delayed release(DR/EC) 120 mg PO DAILY Qty: 60 11RF fluticasone propionate [Flonase Allergy Relief] 50 mcg/actuation spray,suspension 1 spray intranasal BID Qty: 16 0RF Rx Instructions: administer into each nostril terbinafine HCl 250 mg tablet 250 mg PO DAILY Qty: 60 0RF amitriptyline 50 mg tablet 50 mg PO DAILY Qty: 90 1RF amoxicillin 500 mg tablet 500 mg PO BID Qty: 14 0RF dicyclomine 10 mg capsule 10 mg PO TID PRN (Reason: abdominal pain) Qty: 30 1RF budesonide-formoterol [Symbicort] 160-4.5 mcg/actuation HFA aerosol inhaler 2 puff INHALATION BID Qty: 10.2 3RF metoprolol succinate 50 mg tablet extended release 24 hr 50 mg PO DAILY Qty: 30 1RF gabapentin 300 mg capsule 300 mg PO TID Qty: 180 1RF (DME) CPAP mask, tubing, supplies See Rx Instructions .ROUTE .MEDSUPPLY Qty: 1 1RF Rx Instructions: As directed (DME) nebulizer and equipment See Rx Instructions .Route .MEDSUPPLY Qty: 1 0RF Rx Instructions: As directed sumatriptan succinate 25 mg tablet See Rx Instructions .ROUTE .COMPLEX Qty: 9 2RF Dose Instruction: TAKE 1 TABLET AT ONSET OF HEADACHE FOR 30 DAYS; IF no RELIEF MAY REPEAT 1 TABLET AFTER AT least 2 HOURS; max = 4 tabs/24 HOUR BY MOUTH] Rx Instructions: TAKE 1 TABLET AT ONSET OF HEADACHE FOR 30 DAYS; IF no RELIEF MAY REPEAT 1 TABLET AFTER AT least 2 HOURS; max = 4 tabs/24 HOUR BY MOUTH] guaifenesin [Mucinex] 1,200 mg tablet extended release 12hr 1,200 mg PO BID Qty: 20 0RF chlorhexidine gluconate 0.12 % mouthwash 15 ml mucous membrane BID Qty: 118 0RF (DME) CPAP 8-12cm mmHg setting with mask and supplies See Rx Instructions .ROUTE .MEDSUPPLY Qty: 1 0RF Rx Instructions: As directed albuterol sulfate 90 mcg/actuation HFA aerosol inhaler 1 inh inhalation QID PRN (Reason: shortness of breath or wheezing) Qty: 8.5 2RF ipratropium-albuterol 0.5 mg-3 mg(2.5 mg base)/3 mL solution for nebulization 3 ml inhalation Q4H PRN (Reason: Shortness Of Breath) Qty: 90 2RF omeprazole 40 mg capsule,delayed release(DR/EC) 40 mg PO DAILY Qty: 90 1RF Rx Instructions: TAKE 1 CAPSULE BY MOUTH DAILY ondansetron 4 mg tablet,disintegrating 4 mg PO Q8H PRN (Reason: nausea and vomiting) Qty: 30 0RF celecoxib 200 mg capsule 200 mg PO DAILY Qty: 30 0RF Discharge Orders: Discharge ED (Routine); Ordered 11/15/24 Ordered By: Scott Monroe Referrals: Miguel Kee MD [Primary Care Provider, Family Practice] - 4-7 days Patient Instructions: Opioid Safety, Pain Management, Patient Portal & Teodoro Instructions Activity Restrictions/Additional Instructions: Take sucralfate with meals and before bed for at least the next 3 to 4 days. You may use metoclopramide for nausea as well as your ondansetron as needed. Increase your liquid intake for the next 24 to 48 hours. Stay in a cool environment. Return for worsening symptoms. Print Language: Afghan Coding Level of Care Code ED Document Preparation Specialist for Chg Fwd Documented by User: Scott Monroe DO 11/15/24 22:09 HPI - Abdominal Pain General: Chief Complaint: Abdominal Pain Stated Complaint: Stomach pain, tarry stools, feels faint Time Seen by Provider: 11/15/24 17:35 Related Data Previous Rx's ?Medication ?Instructions ?Recorded dicyclomine 10 mg capsule 10 mg PO TID PRN abdominal pain 03/06/24 #30 caps duloxetine 60 mg capsule,delayed 120 mg (2 x 60 mg) PO DAILY #60 03/27/24 release (Cymbalta) caps trazodone 100 mg tablet 400 mg (4 x 100 mg) PO .HS PRN 03/27/24 insomnia #120 tabs CPAP mask, tubing, supplies #1 ea 04/10/24 budesonide-formoterol HFA 160 2 puff inhalation BID #10.2 grams 04/10/24 mcg-4.5 mcg/actuation aerosol inhaler (Symbicort) gabapentin 300 mg capsule 300 mg PO TID #180 caps 04/10/24 metoprolol succinate 50 mg 50 mg PO DAILY #30 tabs 04/10/24 tablet,extended release 24 hr nebulizer and equipment #1 ea 04/10/24 chlorhexidine gluconate 0.12 % 15 ml mucous membrane BID #118 mL 06/03/24 mouthwash guaifenesin 1,200 mg tablet, 1,200 mg PO BID for mucus #20 tabs 06/03/24 extended release 12 hr (Mucinex) CPAP 8-12cm mmHg setting with mask #1 ea 06/24/24 and supplies fluticasone propionate 50 1 spray intranasal BID #16 grams 07/06/24 mcg/actuation nasal spray,suspension (Flonase Allergy Relief) albuterol sulfate 90 mcg/actuation 1 inh inhalation QID PRN shortness 08/10/24 aerosol inhaler of breath or wheezing #8.5 grams ipratropium 0.5 mg-albuterol 3 mg 3 ml inhalation Q4H PRN Shortness 08/10/24 (2.5 mg base)/3 mL nebulization Of Breath #90 mL soln omeprazole 40 mg capsule,delayed 40 mg PO DAILY #90 caps 08/10/24 release celecoxib 200 mg capsule 200 mg PO DAILY #30 caps 09/11/24 sumatriptan succinate 25 mg tablet See Rx Instructions .Route 10/02/24 .COMPLEX #9 ea ondansetron 4 mg disintegrating 4 mg PO Q8H PRN nausea and 10/29/24 tablet vomiting #30 tabs amitriptyline 50 mg tablet 50 mg PO DAILY #90 tabs 10/30/24 amoxicillin 500 mg tablet 500 mg PO BID #14 tabs 10/30/24 terbinafine HCl 250 mg tablet 250 mg PO DAILY #60 tabs 10/30/24 metoclopramide HCl 10 mg tablet 10 mg PO Q6H #10 tabs 11/15/24 (Reglan) sucralfate 1 gram tablet 1 g PO TID 4 weeks #84 tabs 11/15/24 Allergies Allergy/AdvReac Type Severity Reaction Status Date / Time grass pollen Allergy Unknown rash Verified 11/12/24 07:16 [facility] ED PFSH: Medical History Psychiatric care Gastroenteritis Carpal tunnel syndrome, bilateral upper limbs Tobacco use disorder Irritable bowel Generalized anxiety disorder Major depressive disorder, recurrent severe without psychotic features Post-traumatic stress disorder, chronic Migraine headache MIKE (obstructive sleep apnea) Asthma-COPD overlap syndrome Mood swings Difficulty controlling anger Anxiety and depression Hypertension Acid reflux Diarrhea Bloated abdomen Acquired phimosis of penis Lower urinary tract symptoms (LUTS) Restrictive lung disease Surgical History Status post routine circumcision Family History Family/Other CAD (coronary artery disease) Hypertension Lung disease Social History Smoking and tobacco/nicotine status: current every day tobacco/nicotine user Quit status (tobacco/nicotine): has quit using Year quit tobacco: dec 30, 2013 Former quit date comment: [id number] Second hand smoke exposure: Yes Alcohol intake: current Alcohol intake frequency: holidays/special occasions only Substance/Drug Use: never Lives independently: Yes Household members: spouse Housing: House Marital status: service: No Current occupational status: employed Pets and animals: No Do you think of yourself as: Straight/Heterosexual Current gender identity: Male Course Vital Signs: Vital signs: Vital Signs Temperature 98.5 F 11/15/24 15:35 Pulse Rate 70 11/15/24 19:26 Respiratory Rate 16 11/15/24 19:26 Blood Pressure 148/92 11/15/24 19:26 Pulse Oximetry 98 11/15/24 19:26 Oxygen Delivery Me thod Room Air 11/15/24 15:35 MDM - Abdominal Pain Medical Decision Making Received patient in checkout at shift change from the previous physician. This patient has mild hypertension. Vitals are otherwise stable. He is afebrile. Hemoglobin is 17, otherwise CBC is normal. BMP is normal. Chest x-ray is negative. Lipase is normal. Troponin is nondetectable. EKG shows no acute ST wave changes. He received Benadryl, Reglan, and a liter of fluid. He is feeling improved. He will be discharged with symptomatic treatment. Lab Data 11/15/24 16:34 11/15/24 16:34 Labs/Radiology: Radiology Impressions Chest X-Ray 11/15/24 17:25 IMPRESSION: No acute findings. Laboratory Results WBC 10.69 10^3/uL (3.29-11.43) 11/15/24 16:34 RBC 5.25 10^6/uL (3.85-5.65) 11/15/24 16:34 Hgb 17.10 g/dL (11.27-16.99) H 11/15/24 16:34 Hct 48.3 % (37-53) 11/15/24 16:34 MCV 92.0 fl (82-101) 11/15/24 16:34 MCH 32.6 pg (27-33) 11/15/24 16:34 MCHC 35.4 g/dL (30-55) 11/15/24 16:34 RDW 12.2 % (12.1-15.1) 11/15/24 16:34 Plt Count 216 10^3/cmm (157-399) 11/15/24 16:34 MPV 9.5 fL (7.4-10.4) 11/15/24 16:34 Neut % (Auto) 58.1 % 11/15/24 16:34 Lymph % (Auto) 29.1 % 11/15/24 16:34 [place] % (Auto) 8.6 % 11/15/24 16:34 Eos % (Auto) 2.9 % 11/15/24 16:34 Baso % (Auto) 0.7 % 11/15/24 16:34 Neut # (Auto) 6.21 10^3/uL (1.8-7.7) 11/15/24 16:34 Lymph # (Auto) 3.1 10^3/uL (0.8-4.8) 11/15/24 16:34 [place] # (Auto) 0.9 10^3/uL (0.2-0.9) 11/15/24 16:34 Eos # (Auto) 0.3 10^3/uL (0.0-0.8) 11/15/24 16:34 Baso # (Auto) 0.1 10^3/uL (0.0-0.1) 11/15/24 16:34 Nucleated RBC % (auto) 0 % 11/15/24 16:34 Nucleated RBCs # 0.0 /100WBC 11/15/24 16:34 PT 13.10 SECONDS (12.1-14.9) 11/15/24 16:34 INR 0.93 (0.8-1.2) 11/15/24 16:34 Sodium 136 mmol/L (136-145) 11/15/24 16:34 Potassium 3.9 mmol/L (3.5-5.1) 11/15/24 16:34 Chloride 102 mmol/L (98-107) 11/15/24 16:34 Carbon Dioxide 22 mmol/L (22-29) 11/15/24 16:34 Anion Gap 15.9 (5-19) 11/15/24 16:34 BUN 10 mg/dL (6-20) 11/15/24 16:34 Creatinine 0.9 mg/dL (0.7-1.2) 11/15/24 16:34 GFR Calculation 93.0 mL/min (90-130) 11/15/24 16:34 Glucose 85 mg/dL (65-115) 11/15/24 16:34 Calculated Osmolality 280 mOsm/kg (285-295) L 11/15/24 16:34 Calcium 8.8 mg/dL (8.5-10.5) 11/15/24 16:34 Total Bilirubin 0.6 mg/dL (0.15-1.2) 11/15/24 16:34 AST 25 U/L (0-40) 11/15/24 16:34 ALT 51 U/L (0-41) H 11/15/24 16:34 Alkaline Phosphatase 60 U/L (40-130) 11/15/24 16:34 Troponin T Baseline < 6 ng/L (0-15) 11/15/24 16:34 Total Protein 7.2 g/dL (6.6-8.7) 11/15/24 16:34 Albumin 4.3 g/dL (3.5-5.2) 11/15/24 16:34 Globulin 2.9 g/dL (1.3-4.6) 11/15/24 16:34 Lipase 17 U/L (13-60) 11/15/24 16:34 Influenza A (PCR) Negative (Negative) 11/15/24 18:21 Influenza Type B (PCR) Negative (Negative) 11/15/24 18:21 RSV (PCR) Negative (Negative) 11/15/24 18:21 SARS-CoV-2 (PCR) Negative (Negative) 11/15/24 18:21 All radiology interpretation(s) finalized by discharge Discharge Plan Discharge Patient Disposition: Home Clinical Impression: Gastroenteritis Condition: Stable Prescriptions: New sucralfate 1 gram tablet 1 g PO TID 28 Days Qty: 84 0RF metoclopramide HCl [Reglan] 10 mg tablet 10 mg PO Q6H Qty: 10 0RF No Action trazodone 100 mg tablet 400 mg PO .HS PRN (Reason: insomnia) Qty: 120 11RF duloxetine [Cymbalta] 60 mg capsule,delayed release(DR/EC) 120 mg PO DAILY Qty: 60 11RF fluticasone propionate [Flonase Allergy Relief] 50 mcg/actuation spray,suspension 1 spray intranasal BID Qty: 16 0RF Rx Instructions: administer into each nostril terbinafine HCl 250 mg tablet 250 mg PO DAILY Qty: 60 0RF amitriptyline 50 mg tablet 50 mg PO DAILY Qty: 90 1RF amoxicillin 500 mg tablet 500 mg PO BID Qty: 14 0RF dicyclomine 10 mg capsule 10 mg PO TID PRN (Reason: abdominal pain) Qty: 30 1RF budesonide-formoterol [Symbicort] 160-4.5 mcg/actuation HFA aerosol inhaler 2 puff INHALATION BID Qty: 10.2 3RF metoprolol succinate 50 mg tablet extended release 24 hr 50 mg PO DAILY Qty: 30 1RF gabapentin 300 mg capsule 300 mg PO TID Qty: 180 1RF (DME) CPAP mask, tubing, supplies See Rx Instructions .ROUTE .MEDSUPPLY Qty: 1 1RF Rx Instructions: As directed (DME) nebulizer and equipment See Rx Instructions .Route .MEDSUPPLY Qty: 1 0RF Rx Instructions: As directed sumatriptan succinate 25 mg tablet See Rx Instructions .ROUTE .COMPLEX Qty: 9 2RF Dose Instruction: TAKE 1 TABLET AT ONSET OF HEADACHE FOR 30 DAYS; IF no RELIEF MAY REPEAT 1 TABLET AFTER AT least 2 HOURS; max = 4 tabs/24 HOUR BY MOUTH] Rx Instructions: TAKE 1 TABLET AT ONSET OF HEADACHE FOR 30 DAYS; IF no RELIEF MAY REPEAT 1 TABLET AFTER AT least 2 HOURS; max = 4 tabs/24 HOUR BY MOUTH] guaifenesin [Mucinex] 1,200 mg tablet extended release 12hr 1,200 mg PO BID Qty: 20 0RF chlorhexidine gluconate 0.12 % mouthwash 15 ml mucous membrane BID Qty: 118 0RF (DME) CPAP 8-12cm mmHg setting with mask and supplies See Rx Instructions .ROUTE .MEDSUPPLY Qty: 1 0RF Rx Instructions: As directed albuterol sulfate 90 mcg/actuation HFA aerosol inhaler 1 inh inhalation QID PRN (Reason: shortness of breath or wheezing) Qty: 8.5 2RF ipratropium-albuterol 0.5 mg-3 mg(2.5 mg base)/3 mL solution for nebulization 3 ml inhalation Q4H PRN (Reason: Shortness Of Breath) Qty: 90 2RF omeprazole 40 mg capsule,delayed release(DR/EC) 40 mg PO DAILY Qty: 90 1RF Rx Instructions: TAKE 1 CAPSULE BY MOUTH DAILY ondansetron 4 mg tablet,disintegrating 4 mg PO Q8H PRN (Reason: nausea and vomiting) Qty: 30 0RF celecoxib 200 mg capsule 200 mg PO DAILY Qty: 30 0RF Discharge Orders: Discharge ED (Routine); Ordered 11/15/24 Ordered By: Scott Monroe Referrals: Miguel Kee MD [Primary Care Provider, [facility]] - 4-7 days Patient Instructions: Opioid Safety, Pain Management, Patient Portal & Teodoro Instructions Activity Restrictions/Additional Instructions: Take sucralfate with meals and before bed for at least the next 3 to 4 days. You may use metoclopramide for nausea as well as your ondansetron as needed. Increase your liquid intake for the next 24 to 48 hours. Stay in a cool environment. Return for worsening symptoms. Print Language: Afghan Coding Level of Care Code ED Document Preparation Specialist for Jeanine Clemente
[2024-11-15 17:58] LABS: Troponin(5th) Baseline < 6 ng/L (0-15)
[2024-11-15] MEDS: metoclopramide 5 mg/mL SDV 2 mL 10 MG IVP (18:19)
[2024-11-15] MEDS: diphenhydrAMINE 50 mg/mL SDV 1mL IVP (18:19)
[2024-11-15 18:22] VITALS: BP 151/99; PULSE 63; O2SAT 95
--- NOTE | 2024-11-15 18:30 | ECG_ITS ---
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
[2024-11-15 19:04] LABS: Respiratory Syncytial Virus Ce NEGATIVE (Negative); SARS-CoV-2 PCR NEGATIVE (Negative)
[2024-11-15 19:26] VITALS: BP 148/92; PULSE 70; RESP 16; O2SAT 98
== END 2024-11-15 19:28 | disposition home or self-care (01) ==
PROVIDERS: Emergency Medicine; Emergency Provider Emergency Medicine; PCP Family Medicine
DX: K52.9 Noninfective gastroenteritis and colitis, unspecified (principal); I10 Essential (primary) hypertension; Z72.0 Tobacco use
CPT/HCPCS: 36415; 71045; 80053; 83690; 84484; 85025; 85610; 87637; 93005; 96361; 96374; 96375; 99285; J1200; J2765; J7030

== ENCOUNTER → 2025-01-01 15:55 | Outpatient (BNVA) | payer BC, SELFPAY | PROVIDERS: PCP Family Medicine | DX: R52 Pain, unspecified (principal) | CPT/HCPCS: 87400; 87426 ==

== ENCOUNTER 2025-01-04 15:28 | Emergency (ER) | payer SELFPAY ==
[2025-01-04 15:32] VITALS: BP 146/99; PULSE 78; RESP 18; TEMP 36.9; O2SAT 97; BMI 31.6
--- OUTSIDE RECORDS SUMMARY | 2025-01-04 16:53 | XMS_ITS | Clinical Summary ---
Author Organization [facility] [address] [facility] Address [address] [place] [address] Phone Care Team Providers Care [employer] Name Role Phone Nisha Austin Primary Care Provider [phone] Allergies No known active allergies Medications gabapentin [...] Encounters Date Type Department Care Team Description 12/22/2024 External Device Data [facility] ABSTRACTION Provider, Abstract 12/08/2024 External Device Data [facility] ABSTRACTION Provider, Abstract 12/01/2024 External Device Data [facility] ABSTRACTION Provider, Abstract 11/25/2024 External Device Data [facility] ABSTRACTION Provider, Abstract [...] = 0.6 oz pur e alcohol) occasionally Feeling Safe Answer Date Recorded Are you in a relationship wi th someone who hurts you emotionally and/or physically? 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
--- NOTE | 2025-01-04 18:12 | XRR_ITS ---
PROCEDURE INFORMATION: Exam: XR Chest Exam date and time: 01/04/2025 6:15 PM Age: 39 years old Clinical indication: Cough and other: Throwing up worms; Additional info: Cough/congestion TECHNIQUE: Imaging protocol: Radiologic exam of the chest. Views: 1 view. COMPARISON: CR XR chest 1V portable [id number] 11/15/2024 5:32 PM FINDINGS: Lungs: Unremarkable. No consolidation. Pleural spaces: Unremarkable. No pleural effusion. No pneumothorax. Heart/Mediastinum: Unremarkable. No cardiomegaly. Bones/joints: Unremarkable. XR/XR chest 1V portable [id number] IMPRESSION: No acute findings.
--- NOTE | 2025-01-04 18:13 | W.ED.GENADLT ---
HPI - General Adult General: Chief complaint: General Medical Stated complaint: throwing up worms Time Seen by Provider: 01/04/25 17:42 Source: patient Mode of arrival: ambulatory Limitations: no limitations History of Present Illness: Patient is a 39-year-old male who presents to ED today stating he has been sick with cold or flu symptoms over the past week consisting of headache, bilateral ear pain, rhinorrhea, nasal congestion, sore throat, chest congestion, and cough. He has not had any fevers. He states over the past few days he has now developed abdominal pain and bloating and states he is vomiting and pooping tapeworms. Onset (ago): day(s) Severity: mild Pain Consistency: intermittent Relieving factors: none Exacerbating factors: none Associated symptoms: Reports nausea and vomiting; Deny chest pain, dyspnea, headache(s), malaise or rash Treatments prior to arrival: none Related Data Previous Rx's ?Medication ?Instructions ?Recorded dicyclomine 10 mg capsule 10 mg PO TID PRN abdominal pain 03/06/24 #30 caps duloxetine 60 mg capsule,delayed 120 mg (2 x 60 mg) PO DAILY #60 03/27/24 release (Cymbalta) caps trazodone 100 mg tablet 400 mg (4 x 100 mg) PO .HS PRN 03/27/24 insomnia #120 tabs CPAP mask, tubing, supplies #1 ea 04/10/24 budesonide-formoterol HFA 160 2 puff inhalation BID #10.2 grams 04/10/24 mcg-4.5 mcg/actuation aerosol inhaler (Symbicort) gabapentin 300 mg capsule 300 mg PO TID #180 caps 04/10/24 metoprolol succinate 50 mg 50 mg PO DAILY #30 tabs 04/10/24 tablet,extended release 24 hr nebulizer and equipment #1 ea 04/10/24 chlorhexidine gluconate 0.12 % 15 ml mucous membrane BID #118 mL 06/03/24 mouthwash CPAP 8-12cm mmHg setting with mask #1 ea 06/24/24 and supplies fluticasone propionate 50 1 spray intranasal BID #16 grams 07/06/24 mcg/actuation nasal spray,suspension (Flonase Allergy Relief) ipratropium 0.5 mg-albuterol 3 mg 3 ml inhalation Q4H PRN Shortness 08/10/24 (2.5 mg base)/3 mL nebulization Of Breath #90 mL soln omeprazole 40 mg capsule,delayed 40 mg PO DAILY #90 caps 08/10/24 release celecoxib 200 mg capsule 200 mg PO DAILY #30 caps 09/11/24 sumatriptan succinate 25 mg tablet See Rx Instructions .Route 10/02/24 .COMPLEX #9 ea ondansetron 4 mg disintegrating 4 mg PO Q8H PRN nausea and 10/29/24 tablet vomiting #30 tabs amitriptyline 50 mg tablet 50 mg PO DAILY #90 tabs 10/30/24 terbinafine HCl 250 mg tablet 250 mg PO DAILY #60 tabs 10/30/24 metoclopramide HCl 10 mg tablet 10 mg PO Q6H #10 tabs 11/15/24 (Reglan) quetiapine 100 mg tablet (Seroquel) 100 mg PO .HS #30 tabs 12/25/24 albuterol sulfate 90 mcg/actuation 1 inh inhalation QID PRN shortness 01/01/25 aerosol inhaler of breath or wheezing #8.5 grams amoxicillin 875 mg-potassium 1 tab PO BID 10 days #20 tabs 01/01/25 clavulanate 125 mg tablet ofloxacin 0.3 % ear drops 5 drp otic (ear) BID 7 days #10 mL 01/01/25 promethazine 6.25 mg/5 mL oral 6.25 mg (5 mL) PO BID #473 mL 01/01/25 syrup Allergies Allergy/AdvReac Type Severity Reaction Status Date / Time grass pollen Allergy Unknown rash Verified 01/01/25 15:35 Review of Systems Const: Denies: fever(s), chills, body aches, change in appetite, change in weight, fatigue or malaise Eyes: Denies: change in vision, blurry vision, photophobia, floaters or seeing flashes ENMT: Reports: throat pain, odynophagia, ear or mastoid pain, nasal discharge and nasal congestion Card: Denies: chest pain Resp: Reports: non-productive cough and chest congestion; Denies: dyspnea GI: Reports: abdominal pain, nausea and vomiting; Denies: hematemesis, hematochezia or melena : Denies: flank pain, difficulty urinating, dysuria, urinary frequency, urinary urgency or urinary hesitancy Musc: Denies: neck pain, back pain, extremity pain, extremity swelling, joint pain, joint swelling or joint redness Skin/Breast: Denies: rash Neuro: Denies: headache(s), numbness in extremities, weakness in extremities, sensory changes or dizziness PFSH ED PFSH: Medical History Psychiatric care Gastroenteritis Carpal tunnel syndrome, bilateral upper limbs Tobacco use disorder Irritable bowel Generalized anxiety disorder Major depressive disorder, recurrent severe without psychotic features Post-traumatic stress disorder, chronic Migraine headache MIKE (obstructive sleep apnea) Asthma-COPD overlap syndrome Mood swings Difficulty controlling anger Anxiety and depression Hypertension Acid reflux Diarrhea Bloated abdomen Acquired phimosis of penis Lower urinary tract symptoms (LUTS) Restrictive lung disease Surgical History Status post routine circumcision Family History Family/Other CAD (coronary artery disease) Hypertension Lung disease Social History Smoking and tobacco/nicotine status: current every day tobacco/nicotine user Quit status (tobacco/nicotine): has quit using Year quit tobacco: dec 30, 2013 Former quit date comment: [id number] Second hand smoke exposure: Yes Alcohol intake: current Alcohol intake frequency: holidays/special occasions only Substance/Drug Use: never Lives independently: Yes Household members: spouse Housing: House Marital status: service: No Current occupational status: employed Pets and animals: No Do you think of yourself as: Straight/Heterosexual Current gender identity: Male Physical Exam Const: COMMON NORMALS: no acute distress, patient oriented x3, no limitations, alert and well nourished GENERAL APPEARANCE: cooperative HENMT: COMMON NORMALS: normocephalic, atraumatic, external ears normal and Normal external nose present HEAD & SCALP: normal to inspection, normocephalic and atraumatic FACE & SINUS: normal facial exam and sinuses nontender NOSE: Normal external nose present EXTERNAL EAR: Yes external ears normal, Yes mastoids normal and Yes no periauricular adenopathy TYMPANIC MEMBRANE: TM abnormal TM laterality: left Details: effusion MOUTH: Normal oral and palatal mucosa present, lip normal, tongue normal and Normal salivary glands and ducts present THROAT: tonsils normal and posterior oropharynx abnormal erythema Eye: GENERAL EYE: appearance normal, both eyes and all related structures and normal light reflex DIRECT OPHTHALMOSCOPY: Yes normal light reflex Neck/C-Spine: COMMON NORMALS: full ROM, no lymphadenopathy, supple and no meningeal signs Chest: COMMONS NORMALS: normal inspection of the chest Resp: COMMON NORMALS: normal respiratory effort and clear to auscultation bilaterally AUSCULTATION: clear to auscultation bilaterally Cardio: COMMON NORMALS: regular rate and regular rhythm RATE: regular rate RHYTHM: regular rhythm GI: COMMON NORMALS: Normal to inspection, nondistended, normoactive bowel sounds present, Soft to palpation, No hepatosplenomegaly present and no masses INSPECTION: Yes normal to inspection AUSCULTATION: Yes normoactive bowel sounds PALPATION: Yes Soft to palpation, Yes Tenderness to palpation present (GI) (mild diffuse discomfort-non surgical examination), No Guarding due to palpation present (GI), No Rigid due to palpation and Yes No hepatosplenomegaly present : COMMON NORMALS: Yes no CVA tenderness BLADDER/KIDNEY EXAM: Yes no CVA tenderness Back/Pelvis: COMMON NORMALS: no CVA tenderness and thoracic and lumbar spine normal to inspection Extremity: COMMON NORMALS: normal to inspection Neuro: COMMON NORMALS: patient oriented x3 SENSORIUM/ORIENTATION: Yes alert MENINGEAL SIGNS: Yes no meningeal signs Skin: COMMON NORMALS: no rashes or lesions noted GENERAL SKIN EXAM: no rashes or lesions noted Course Vital Signs: Vital signs: Vital Signs Temperature 98.4 F 01/04/25 15:32 Pulse Rate 68 01/04/25 19:01 Respiratory Rate 18 01/04/25 15:32 Blood Pressure 146/101 01/04/25 19:01 Pulse Oximetry 96 01/04/25 19:01 Oxygen Delivery Me thod Room Air 01/04/25 15:32 [facility] - General Adult Medical Decision Making Patient appears in absolutely no acute distress. His vital signs are stable. Blood work is unremarkable. CXR showing no acute findings. Respiratory panel collected and pending at time of discharge. Patient has a complaint of vomiting and defecating tapeworms. He thinks this because he is seeing white stringy things . He was not able to give any form of sample here. Will hold off on treating him for parasitic infection. He can bring sample with him to his primary care provider at a later date. Patient is stable for discharge from the emergency department. Recommendations that he follows up with his primary care provider later this week. Medical Records I reviewed the patient's medical records. Lab Data I reviewed the patient's lab results. 01/04/25 17:59 01/04/25 17:59 Radiology Impressions Chest X-Ray 01/04/25 18:12 IMPRESSION: No acute findings. Laboratory Results WBC 10.58 10^3/uL (3.29-11.43) 01/04/25 17:59 RBC 5.01 10^6/uL (3.85-5.65) 01/04/25 17:59 Hgb 16.80 g/dL (11.27-16.99) 01/04/25 17:59 Hct 46.4 % (37-53) 01/04/25 17:59 MCV 92.6 fl (82-101) 01/04/25 17:59 MCH 33.5 pg (27-33) H 01/04/25 17:59 MCHC 36.2 g/dL (30-55) 01/04/25 17:59 RDW 12.3 % (12.1-15.1) 01/04/25 17:59 Plt Count 216 10^3/cmm (157-399) 01/04/25 17:59 MPV 9.8 fL (7.4-10.4) 01/04/25 17:59 Neut % (Auto) 51.6 % 01/04/25 17:59 Lymph % (Auto) 34.1 % 01/04/25 17:59 Atkinson % (Auto) 9.1 % 01/04/25 17:59 Eos % (Auto) 2.6 % 01/04/25 17:59 Baso % (Auto) 0.7 % 01/04/25 17:59 Neut # (Auto) 5.47 10^3/uL (1.8-7.7) 01/04/25 17:59 Lymph # (Auto) 3.6 10^3/uL (0.8-4.8) 01/04/25 17:59 Atkinson # (Auto) 1.0 10^3/uL (0.2-0.9) H 01/04/25 17:59 Eos # (Auto) 0.3 10^3/uL (0.0-0.8) 01/04/25 17:59 Baso # (Auto) 0.1 10^3/uL (0.0-0.1) 01/04/25 17:59 Nucleated RBC % (auto) 0 % 01/04/25 17:59 Nucleated RBCs # 0.0 /100WBC 01/04/25 17:59 Sodium 138 mmol/L (136-145) 01/04/25 17:59 Potassium 3.9 mmol/L (3.5-5.1) 01/04/25 17:59 Chloride 99 mmol/L (98-107) 01/04/25 17:59 Carbon Dioxide 28 mmol/L (22-29) 01/04/25 17:59 Anion Gap 14.9 (5-19) 01/04/25 17:59 BUN 10 mg/dL (6-20) 01/04/25 17:59 Creatinine 0.8 mg/dL (0.7-1.2) 01/04/25 17:59 GFR Calculation 106.5 mL/min (90-130) 01/04/25 17:59 Glucose 87 mg/dL (65-115) 01/04/25 17:59 Calculated Osmolality 284 mOsm/kg (285-295) L 01/04/25 17:59 Calcium 9.6 mg/dL (8.5-10.5) 01/04/25 17:59 Total Bilirubin 0.4 mg/dL (0.15-1.2) 01/04/25 17:59 AST 29 U/L (0-40) 01/04/25 17:59 ALT 54 U/L (0-41) H 01/04/25 17:59 Alkaline Phosphatase 57 U/L (40-130) 01/04/25 17:59 Total Protein 7.6 g/dL (6.6-8.7) 01/04/25 17:59 Albumin 4.5 g/dL (3.5-5.2) 01/04/25 17:59 Globulin 3.1 g/dL (1.3-4.6) 01/04/25 17:59 Lipase 19 U/L (13-60) 01/04/25 17:59 Urine Color Yellow (Yellow) 01/04/25 18:54 Urine Appearance Clear (CLEAR) 01/04/25 18:54 Urine pH 7.0 (5-7) 01/04/25 18:54 Ur Specific [place] 1.014 (1.005-1.030) 01/04/25 18:54 Urine Protein Negative (Negative) 01/04/25 18:54 Urine Glucose (UA) Negative (Normal) 01/04/25 18:54 Urine Ketones Negative (Negative) 01/04/25 18:54 Urine Blood Negative (Negative) 01/04/25 18:54 Urine Nitrate Negative (Negative) 01/04/25 18:54 Urine Bilirubin Negative (Negative) 01/04/25 18:54 Urine Urobilinogen 0.2 mg/dL (Negative) 01/04/25 18:54 Ur Leukocyte Esterase Trace (Negative) A 01/04/25 18:54 Urine RBC 0-2 /hpf (0-2) 01/04/25 18:54 Urine WBC 0-5 /hpf (0-5) 01/04/25 18:54 Ur Squamous Epith Cells 0-5 /hpf (0-5) 01/04/25 18:54 Amorphous Sediment Not Reportable 01/04/25 18:54 Urine Bacteria None seen /hpf (NONE) 01/04/25 18:54 Hyaline Casts 0-4 /lpf H 01/04/25 18:54 All radiology interpretation(s) finalized by discharge Discharge Plan Discharge Patient Disposition: Home Clinical Impression: Viral URI Abdominal pain Qualifiers: Abdominal location: generalized Qualified Code(s): R10.84 - Generalized abdominal pain Condition: Stable Prescriptions: No Action trazodone 100 mg tablet 400 mg PO .HS PRN (Reason: insomnia) Qty: 120 11RF duloxetine [Cymbalta] 60 mg capsule,delayed release(DR/EC) 120 mg PO DAILY Qty: 60 11RF fluticasone propionate [Flonase Allergy Relief] 50 mcg/actuation spray,suspension 1 spray intranasal BID Qty: 16 0RF Rx Instructions: administer into each nostril terbinafine HCl 250 mg tablet 250 mg PO DAILY Qty: 60 0RF amitriptyline 50 mg tablet 50 mg PO DAILY Qty: 90 1RF albuterol sulfate 90 mcg/actuation HFA aerosol inhaler 1 inh inhalation QID PRN (Reason: shortness of breath or wheezing) Qty: 8.5 2RF amoxicillin-pot clavulanate 875-125 mg tablet 1 tab PO BID 10 Days Qty: 20 0RF promethazine 6.25 mg/5 mL syrup 6.25 mg PO BID Qty: 473 0RF ofloxacin 0.3 % drops 5 drp otic (ear) BID 7 Days Qty: 10 1RF dicyclomine 10 mg capsule 10 mg PO TID PRN (Reason: abdominal pain) Qty: 30 1RF budesonide-formoterol [Symbicort] 160-4.5 mcg/actuation HFA aerosol inhaler 2 puff INHALATION BID Qty: 10.2 3RF metoprolol succinate 50 mg tablet extended release 24 hr 50 mg PO DAILY Qty: 30 1RF gabapentin 300 mg capsule 300 mg PO TID Qty: 180 1RF (DME) CPAP mask, tubing, supplies See Rx Instructions .ROUTE .MEDSUPPLY Qty: 1 1RF Rx Instructions: As directed (DME) nebulizer and equipment See Rx Instructions .Route .MEDSUPPLY Qty: 1 0RF Rx Instructions: As directed sumatriptan succinate 25 mg tablet See Rx Instructions .ROUTE .COMPLEX Qty: 9 2RF Dose Instruction: TAKE 1 TABLET AT ONSET OF HEADACHE FOR 30 DAYS; IF no RELIEF MAY REPEAT 1 TABLET AFTER AT least 2 HOURS; max = 4 tabs/24 HOUR BY MOUTH] Rx Instructions: TAKE 1 TABLET AT ONSET OF HEADACHE FOR 30 DAYS; IF no RELIEF MAY REPEAT 1 TABLET AFTER AT least 2 HOURS; max = 4 tabs/24 HOUR BY MOUTH] quetiapine [Seroquel] 100 mg tablet 100 mg PO .HS Qty: 30 2RF chlorhexidine gluconate 0.12 % mouthwash 15 ml mucous membrane BID Qty: 118 0RF (DME) CPAP 8-12cm mmHg setting with mask and supplies See Rx Instructions .ROUTE .MEDSUPPLY Qty: 1 0RF Rx Instructions: As directed ipratropium-albuterol 0.5 mg-3 mg(2.5 mg base)/3 mL solution for nebulization 3 ml inhalation Q4H PRN (Reason: Shortness Of Breath) Qty: 90 2RF omeprazole 40 mg capsule,delayed release(DR/EC) 40 mg PO DAILY Qty: 90 1RF Rx Instructions: TAKE 1 CAPSULE BY MOUTH DAILY ondansetron 4 mg tablet,disintegrating 4 mg PO Q8H PRN (Reason: nausea and vomiting) Qty: 30 0RF celecoxib 200 mg capsule 200 mg PO DAILY Qty: 30 0RF metoclopramide HCl [Reglan] 10 mg tablet 10 mg PO Q6H Qty: 10 0RF Discharge Orders: Discharge ED (Routine); Ordered 01/04/25 Ordered By: Lexie Dupont Referrals: Miguel Kee MD [Primary Care Provider, Family Practice] Patient Instructions: Abdominal Pain (ED), Patient Portal & Teodoro Instructions Activity Restrictions/Additional Instructions: As we discussed, your blood work here was unremarkable. Urine is clear. Respiratory panel collected and pending at time of discharge. You will be contacted with any positive results. Your chest x-ray was unremarkable. You were not able to provide any sampling for ova/parasite testing regarding your concern for tapeworms. You can speak to your primary care provider regarding this or bring a sample to their office. Print Language: Gambian Coding Level of Care Code ED Desk Director for Jeanine Clemente
[2025-01-04 18:40] LABS: Hematocrit 46.4 % (37-53); Hemoglobin 16.80 g/dL (11.27-16.99); Mean Corpuscular HGB Conc 36.2 g/dL (30-55); Mean Corpuscular Hemoglobin 33.5 pg (27-33); Mean Corpuscular Volume 92.6 fl (82-101); Nucleated Red Blood Cells % 0 %; Platelet Count 216 10^3/cmm (157-399); Red Blood Count 5.01 10^6/uL (3.85-5.65); White Blood Count 10.58 10^3/uL (3.29-11.43)
[2025-01-04 18:48] LABS: Alanine Aminotransferase 54 U/L (0-41); Albumin Level 4.5 g/dL (3.5-5.2); Alkaline Phosphatase 57 U/L (40-130); Anion Gap 14.9 (5-19); Aspartate Amino Transferase 29 U/L (0-40); Blood Urea Nitrogen 10 mg/dL (6-20); Calcium 9.6 mg/dL (8.5-10.5); Carbon Dioxide 28 mmol/L (22-29); Chloride 99 mmol/L (98-107); Creatinine Clr Calc Pharmacy 139.6443; Globulin 3.1 g/dL (1.3-4.6); Glucose 87 mg/dL (65-115); Lipase 19 U/L (13-60); Osmolality Calculated 284 mOsm/kg (285-295); Potassium 3.9 mmol/L (3.5-5.1); Sodium 138 mmol/L (136-145); Total Protein 7.6 g/dL (6.6-8.7)
[2025-01-04 19:01] VITALS: BP 146/101; PULSE 68; O2SAT 96
[2025-01-04 19:07] LABS: Glucose Urine UA Negative (Normal); Nitrate Urine Negative (Negative); Specific Gravity, Urine 1.014 (1.005-1.030)
[2025-01-04 19:12] LABS: Add Urine Microscopic? YES
[2025-01-04 19:42] VITALS: BP 146/101; PULSE 79; O2SAT 97
[2025-01-04 20:55] LABS: Coronavirus 229E,HKU1,NL63,OC4 Not Detected (NOT DETECT); Parainfluenza Virus Type 1 Not Detected (NOT DETECT); Parainfluenza Virus Type 2 Not Detected (NOT DETECT); Parainfluenza Virus Type 3 Not Detected (NOT DETECT); Parainfluenza Virus Type 4 Not Detected (NOT DETECT); SARS-COV-2 Not Detected (NOT DETECT)
== END 2025-01-04 19:40 | disposition home or self-care (01) ==
PROVIDERS: Emergency Provider Physician Assistant; PCP Family Medicine
DX: J06.9 Acute upper respiratory infection, unspecified (principal); R10.84 Generalized abdominal pain; Z87.891 Personal history of nicotine dependence; I10 Essential (primary) hypertension
CPT/HCPCS: 36415; 71045; 80053; 81001; 83690; 85025; 87486; 87581; 87633; 99284

== ENCOUNTER → 2025-01-05 11:32 | Outpatient (BNVA) | payer BC, SELFPAY | PROVIDERS: PCP Family Medicine | DX: R10.84 Generalized abdominal pain (principal) | CPT/HCPCS: 87177; 87209 ==

== ENCOUNTER → 2025-01-21 11:29 | Outpatient (BNVA) | payer OTHER, SELFPAY | PROVIDERS: PCP Family Medicine; Visit Provider Psychiatry & Neurology Psychiatry | DX: F41.1 Generalized anxiety disorder (principal); F33.2 Major depressive disorder, recurrent severe without psychotic features; Z79.899 Other long term (current) drug therapy | CPT/HCPCS: 80061; 83036 ==

== ENCOUNTER 2025-03-10 16:19 | Emergency (ER) | payer BC, MEDICAID, SELFPAY ==
[2025-01-26 10:51] VITALS: BMI 32.8
--- NOTE | 2025-03-10 16:22 | XRR_ITS ---
PROCEDURE INFORMATION: Exam: XR Chest Exam date and time: 03/10/2025 4:58 PM Age: 39 years old Clinical indication: Other: Chest pain; Additional info: Cp TECHNIQUE: Imaging protocol: Radiologic exam of the chest. Views: 1 view. COMPARISON: CR XR chest 1V portable [id number] 01/04/2025 6:15 PM FINDINGS: Lungs: Unremarkable. No consolidation. Pleural spaces: Unremarkable. No pleural effusion. No pneumothorax. Heart/Mediastinum: Unremarkable. No cardiomegaly. Bones/joints: Unremarkable. XR/XR chest 1V portable [id number] IMPRESSION: No acute cardiopulmonary process.
--- NOTE | 2025-03-10 16:22 | ECG_ITS ---
[facility] Date: 2025-[facility]10 Pat Name: Marty Stanton Department: Room: Gender: Male President: : 1985 Requested By: Anayeli Soria Order Number: [id number] Childers MD: Key Bejarano M.D. Measurements Intervals Maynard Rate: 85 P: 32 MS: 151 QRS: 65 QRSD: 98 T: 59 QT: 360 QTc: 430 Interpretive Statements SINUS RHYTHM NONSPECIFIC T-WAVE ABNORMALITY Compared to ECG 11/15/2024 18:30:16 T-wave abnormality now present Sinus bradycardia no longer present Electronically Signed On 03-10-2025 23:53:04 [employer] FIRER/FIREMAN by Key Bejarano M.D. [email or web address]
[2025-03-10 16:23] VITALS: BP 154/95; PULSE 93; RESP 17; TEMP 36.9; O2SAT 97; BMI 34.4
[2025-03-10 16:59] LABS: Hematocrit 48.8 % (37-53); Hemoglobin 17.10 g/dL (11.27-16.99); Mean Corpuscular HGB Conc 35.0 g/dL (30-55); Mean Corpuscular Hemoglobin 32.3 pg (27-33); Mean Corpuscular Volume 92.2 fl (82-101); Nucleated Red Blood Cells % 0 %; Platelet Count 216 10^3/cmm (157-399); Red Blood Count 5.29 10^6/uL (3.85-5.65); White Blood Count 10.91 10^3/uL (3.29-11.43)
[2025-03-10 17:20] LABS: INR 0.93 (0.8-1.2); Prothrombin Time 13.10 SECONDS (12.1-14.9)
--- NOTE | 2025-03-10 17:30 | W.ED.CHESTPA ---
HPI - Chest Pain General: Chief Complaint: Chest Pain Stated Complaint: chest pain Time Seen by Provider: 03/10/25 17:25 Source: patient Mode of arrival: ambulatory Limitations: no limitations History of Present Illness: 39-year-old male states that he has been having sharp left-sided chest pain has been constant in nature its been going on for a week. States seem to be worse with movement he denies any shortness of breath denies any nausea. He denies any cough or fever Related Data Previous Rx's ?Medication ?Instructions ?Recorded dicyclomine 10 mg capsule 10 mg PO TID PRN abdominal pain 03/06/24 #30 caps CPAP mask, tubing, supplies #1 ea 04/10/24 budesonide-formoterol HFA 160 2 puff inhalation BID #10.2 grams 04/10/24 mcg-4.5 mcg/actuation aerosol inhaler (Symbicort) gabapentin 300 mg capsule 300 mg PO TID #180 caps 04/10/24 metoprolol succinate 50 mg 50 mg PO DAILY #30 tabs 04/10/24 tablet,extended release 24 hr nebulizer and equipment #1 ea 04/10/24 chlorhexidine gluconate 0.12 % 15 ml mucous membrane BID #118 mL 06/03/24 mouthwash CPAP 8-12cm mmHg setting with mask #1 ea 06/24/24 and supplies fluticasone propionate 50 1 spray intranasal BID #16 grams 07/06/24 mcg/actuation nasal spray,suspension (Flonase Allergy Relief) ipratropium 0.5 mg-albuterol 3 mg 3 ml inhalation Q4H PRN Shortness 08/10/24 (2.5 mg base)/3 mL nebulization Of Breath #90 mL soln celecoxib 200 mg capsule 200 mg PO DAILY #30 caps 09/11/24 sumatriptan succinate 25 mg tablet See Rx Instructions .Route 10/02/24 .COMPLEX #9 ea ondansetron 4 mg disintegrating 4 mg PO Q8H PRN nausea and 10/29/24 tablet vomiting #30 tabs amitriptyline 50 mg tablet 50 mg PO DAILY #90 tabs 10/30/24 terbinafine HCl 250 mg tablet 250 mg PO DAILY #60 tabs 10/30/24 metoclopramide HCl 10 mg tablet 10 mg PO Q6H #10 tabs 11/15/24 (Reglan) albuterol sulfate 90 mcg/actuation 1 inh inhalation QID PRN shortness 01/01/25 aerosol inhaler of breath or wheezing #8.5 grams ofloxacin 0.3 % ear drops 5 drp otic (ear) BID 7 days #10 mL 01/01/25 promethazine 6.25 mg/5 mL oral 6.25 mg (5 mL) PO BID #473 mL 01/01/25 syrup duloxetine 60 mg capsule,delayed 120 mg (2 x 60 mg) PO DAILY #60 01/27/25 release caps quetiapine 100 mg tablet (Seroquel) 100 mg PO .HS #30 tabs 01/27/25 trazodone 100 mg tablet 400 mg (4 x 100 mg) PO .HS PRN 01/27/25 insomnia #120 tabs pantoprazole 40 mg tablet,delayed 40 mg PO BID 6 weeks #84 tabs 03/04/25 release (Protonix) sucralfate 1 gram tablet (Carafate) 1 g PO BID 6 weeks #84 tabs 03/04/25 naproxen 500 mg tablet (Naprosyn) 500 mg PO BID PRN pain #20 tabs 03/10/25 Allergies Allergy/AdvReac Type Severity Reaction Status Date / Time grass pollen Allergy Unknown rash Verified 03/04/25 10:20 Review of Systems Card: Reports: chest pain [facility] ED PFSH: Medical History Psychiatric care Gastroenteritis Carpal tunnel syndrome, bilateral upper limbs Tobacco use disorder Irritable bowel Generalized anxiety disorder Major depressive disorder, recurrent severe without psychotic features Post-traumatic stress disorder, chronic Migraine headache MIKE (obstructive sleep apnea) Asthma-COPD overlap syndrome Mood swings Difficulty controlling anger Anxiety and depression Hypertension Acid reflux Diarrhea Bloated abdomen Acquired phimosis of penis Lower urinary tract symptoms (LUTS) Restrictive lung disease Surgical History Status post routine circumcision Family History Family/Other CAD (coronary artery disease) Hypertension Lung disease Social History Smoking and tobacco/nicotine status: current every day tobacco/nicotine user Quit status (tobacco/nicotine): has quit using Year quit tobacco: dec 30, 2013 Former quit date comment: [id number] Second hand smoke exposure: Yes Alcohol intake: current Alcohol intake frequency: holidays/special occasions only Substance/Drug Use: never Lives independently: Yes Household members: spouse Housing: House Marital status: service: No Current occupational status: employed Pets and animals: No Do you think of yourself as: Straight/Heterosexual Current gender identity: Male Physical Exam Const: COMMON NORMALS: no acute distress, patient oriented x3 and healthy appearing HENMT: COMMON NORMALS: normocephalic and atraumatic HEAD & SCALP: normocephalic and atraumatic Neck/C-Spine: COMMON NORMALS: full ROM and supple Chest: COMMONS NORMALS: normal inspection of the chest and normal palpation of entire chest wall Resp: COMMON NORMALS: normal respiratory effort, No retractions, No use of accessory muscles and clear to auscultation bilaterally AUSCULTATION: clear to auscultation bilaterally Cardio: COMMON NORMALS: regular rate, regular rhythm and No murmurs present (Cardio) RATE: regular rate RHYTHM: regular rhythm GI: COMMON NORMALS: Normal to inspection, nondistended, normoactive bowel sounds present, Soft to palpation, non-tender and no masses PALPATION: Yes Soft to palpation Extremity: COMMON NORMALS: normal to inspection and full ROM Neuro: COMMON NORMALS: patient oriented x3, moves all extremities and no focal motor deficits Psych: COMMON NORMALS: mental status grossly normal, Normal thought process present and cooperative THOUGHT PROCESS: Normal thought process present Skin: COMMON NORMALS: no rashes or lesions noted and no wounds GENERAL SKIN EXAM: no rashes or lesions noted Course Vital Signs: Vital signs: Vital Signs Temperature 98.4 F 03/10/25 16:23 Pulse Rate 88 03/10/25 17:39 Respiratory Rate 17 03/10/25 16:23 Blood Pressure 141/108 03/10/25 17:39 Pulse Oximetry 95 03/10/25 17:39 Oxygen Delivery Me thod Room Air 03/10/25 17:39 MDM - Chest Pain Medical Decision Making 39-year-old male has been having a sharp left-sided chest pain for 1 week. Differential includes pulm emboli, pneumothorax, ACS, aortic dissection. I did review his chest x-ray here showed no acute abnormalities no signs of pneumonia or pneumothorax no mediastinal widening. His symptoms are not consistent with pulmonary emboli he is not tachycardic he has no shortness of breath. His pains are atypical in nature he has a heart score of 1 I did interpret his EKG normal sinus rhythm heart rate [address] elevation QRS 98 QTc 4 3 initial troponin was normal I feel he is stable for discharge here. He is to follow-up his PCP to go over all his lab work with him he is to return with worsening he understands agrees to plan. Medical Records I reviewed the patient's medical records. Lab Data I reviewed the patient's lab results. 03/10/25 16:44 03/10/25 16:44 Radiology Impressions Chest X-Ray 03/10/25 16:22 IMPRESSION: No acute cardiopulmonary process. Laboratory Results WBC 10.91 10^3/uL (3.29-11.43) 03/10/25 16:44 RBC 5.29 10^6/uL (3.85-5.65) 03/10/25 16:44 Hgb 17.10 g/dL (11.27-16.99) H 03/10/25 16:44 Hct 48.8 % (37-53) 03/10/25 16:44 MCV 92.2 fl (82-101) 03/10/25 16:44 MCH 32.3 pg (27-33) 03/10/25 16:44 MCHC 35.0 g/dL (30-55) 03/10/25 16:44 RDW 12.2 % (12.1-15.1) 03/10/25 16:44 Plt Count 216 10^3/cmm (157-399) 03/10/25 16:44 MPV 9.7 fL (7.4-10.4) 03/10/25 16:44 Neut % (Auto) 53.0 % 03/10/25 16:44 Lymph % (Auto) 34.0 % 03/10/25 16:44 [place] % (Auto) 9.0 % 03/10/25 16:44 Eos % (Auto) 2.9 % 03/10/25 16:44 Baso % (Auto) 0.5 % 03/10/25 16:44 Neut # (Auto) 5.77 10^3/uL (1.8-7.7) 03/10/25 16:44 Lymph # (Auto) 3.7 10^3/uL (0.8-4.8) 03/10/25 16:44 [place] # (Auto) 1.0 10^3/uL (0.2-0.9) H 03/10/25 16:44 Eos # (Auto) 0.3 10^3/uL (0.0-0.8) 03/10/25 16:44 Baso # (Auto) 0.1 10^3/uL (0.0-0.1) 03/10/25 16:44 Nucleated RBC % (auto) 0 % 03/10/25 16:44 Nucleated RBCs # 0.0 /100WBC 03/10/25 16:44 PT 13.10 SECONDS (12.1-14.9) 03/10/25 16:44 INR 0.93 (0.8-1.2) 03/10/25 16:44 Sodium 141 mmol/L (136-145) 03/10/25 16:44 Potassium 4.3 mmol/L (3.5-5.1) 03/10/25 16:44 Chloride 102 mmol/L (98-107) 03/10/25 16:44 Carbon Dioxide 24 mmol/L (22-29) 03/10/25 16:44 Anion Gap 19.3 (5-19) H 03/10/25 16:44 BUN 12 mg/dL (6-20) 03/10/25 16:44 Creatinine 1.0 mg/dL (0.7-1.2) 03/10/25 16:44 GFR Calculation 82.3 mL/min (90-130) L 03/10/25 16:44 Glucose 85 mg/dL (65-115) 03/10/25 16:44 Calculated Osmolality 291 mOsm/kg (285-295) 03/10/25 16:44 Calcium 9.7 mg/dL (8.5-10.5) 03/10/25 16:44 Total Bilirubin 0.8 mg/dL (0.15-1.2) 03/10/25 16:44 AST 33 U/L (0-40) 03/10/25 16:44 ALT 66 U/L (0-41) H 03/10/25 16:44 Alkaline Phosphatase 53 U/L (40-130) 03/10/25 16:44 Troponin T Baseline < 6 ng/L (0-15) 03/10/25 16:44 Total Protein 7.6 g/dL (6.6-8.7) 03/10/25 16:44 Albumin 4.8 g/dL (3.5-5.2) 03/10/25 16:44 Globulin 2.8 g/dL (1.3-4.6) 03/10/25 16:44 All radiology interpretation(s) finalized by discharge EKG Data EKG 1: I personally reviewed and interpreted this EKG as follows: EKG interpretation date: 03/10/25 EKG interpretation time: 16:24 Interpretation: nsr hr [address] elevation qrs 98 qtc 403 Discharge Plan Discharge Patient Disposition: Home Clinical Impression: Atypical chest pain Condition: Stable Prescriptions: New naproxen [Naprosyn] 500 mg tablet 500 mg PO BID PRN (Reason: pain) Qty: 20 0RF No Action fluticasone propionate [Flonase Allergy Relief] 50 mcg/actuation spray,suspension 1 spray intranasal BID Qty: 16 0RF Rx Instructions: administer into each nostril terbinafine HCl 250 mg tablet 250 mg PO DAILY Qty: 60 0RF amitriptyline 50 mg tablet 50 mg PO DAILY Qty: 90 1RF duloxetine 60 mg capsule,delayed release(DR/EC) 120 mg PO DAILY Qty: 60 11RF trazodone 100 mg tablet 400 mg PO .HS PRN (Reason: insomnia) Qty: 120 11RF quetiapine [Seroquel] 100 mg tablet 100 mg PO .HS Qty: 30 11RF albuterol sulfate 90 mcg/actuation HFA aerosol inhaler 1 inh inhalation QID PRN (Reason: shortness of breath or wheezing) Qty: 8.5 2RF promethazine 6.25 mg/5 mL syrup 6.25 mg PO BID Qty: 473 0RF ofloxacin 0.3 % drops 5 drp otic (ear) BID 7 Days Qty: 10 1RF dicyclomine 10 mg capsule 10 mg PO TID PRN (Reason: abdominal pain) Qty: 30 1RF budesonide-formoterol [Symbicort] 160-4.5 mcg/actuation HFA aerosol inhaler 2 puff INHALATION BID Qty: 10.2 3RF metoprolol succinate 50 mg tablet extended release 24 hr 50 mg PO DAILY Qty: 30 1RF gabapentin 300 mg capsule 300 mg PO TID Qty: 180 1RF (DME) CPAP mask, tubing, supplies See Rx Instructions .ROUTE .MEDSUPPLY Qty: 1 1RF Rx Instructions: As directed (DME) nebulizer and equipment See Rx Instructions .Route .MEDSUPPLY Qty: 1 0RF Rx Instructions: As directed sumatriptan succinate 25 mg tablet See Rx Instructions .ROUTE .COMPLEX Qty: 9 2RF Dose Instruction: TAKE 1 TABLET AT ONSET OF HEADACHE FOR 30 DAYS; IF no RELIEF MAY REPEAT 1 TABLET AFTER AT least 2 HOURS; max = 4 tabs/24 HOUR BY MOUTH] Rx Instructions: TAKE 1 TABLET AT ONSET OF HEADACHE FOR 30 DAYS; IF no RELIEF MAY REPEAT 1 TABLET AFTER AT least 2 HOURS; max = 4 tabs/24 HOUR BY MOUTH] sucralfate [Carafate] 1 gram tablet 1 g PO BID 42 Days Qty: 84 0RF pantoprazole [Protonix] 40 mg tablet,delayed release (DR/EC) 40 mg PO BID 42 Days Qty: 84 0RF chlorhexidine gluconate 0.12 % mouthwash 15 ml mucous membrane BID Qty: 118 0RF (DME) CPAP 8-12cm mmHg setting with mask and supplies See Rx Instructions .ROUTE .MEDSUPPLY Qty: 1 0RF Rx Instructions: As directed ipratropium-albuterol 0.5 mg-3 mg(2.5 mg base)/3 mL solution for nebulization 3 ml inhalation Q4H PRN (Reason: Shortness Of Breath) Qty: 90 2RF ondansetron 4 mg tablet,disintegrating 4 mg PO Q8H PRN (Reason: nausea and vomiting) Qty: 30 0RF celecoxib 200 mg capsule 200 mg PO DAILY Qty: 30 0RF metoclopramide HCl [Reglan] 10 mg tablet 10 mg PO Q6H Qty: 10 0RF Discharge Orders: Discharge ED (Routine); Ordered 03/10/25 Ordered By: Anayeli Soria Referrals: Miguel Kee MD [Primary Care Provider, Family Practice] - 4-7 days Discharge Diet: Advance as tolerated Discharge Activity: Resume usual activity Patient Instructions: Chest Pain (ED) Print Language: Turkmen Coding Level of Care Code ED Flag Decorator for Chg Fwd Heart Score HEART Score Components History: Slightly Suspicous EKG: Normal Age: Less than 45 yrs Risk Factors: 1 or 2 Risk Factors Troponin: Baseline Trop <16 ng/L HEART Score RESULT HEART Score: 1
[2025-03-10 17:34] LABS: Troponin(5th) Baseline < 6 ng/L (0-15)
[2025-03-10 17:36] LABS: Alanine Aminotransferase 66 U/L (0-41); Albumin Level 4.8 g/dL (3.5-5.2); Alkaline Phosphatase 53 U/L (40-130); Anion Gap 19.3 (5-19); Aspartate Amino Transferase 33 U/L (0-40); Blood Urea Nitrogen 12 mg/dL (6-20); Calcium 9.7 mg/dL (8.5-10.5); Carbon Dioxide 24 mmol/L (22-29); Chloride 102 mmol/L (98-107); Globulin 2.8 g/dL (1.3-4.6); Glucose 85 mg/dL (65-115); Osmolality Calculated 291 mOsm/kg (285-295); Potassium 4.3 mmol/L (3.5-5.1); Sodium 141 mmol/L (136-145); Total Protein 7.6 g/dL (6.6-8.7)
[2025-03-10 17:39] VITALS: BP 141/108; PULSE 88; O2SAT 95
[2025-03-10 18:05] VITALS: BP 145/102; PULSE 86; O2SAT 96
== END 2025-03-10 18:07 | disposition home or self-care (01) ==
PROVIDERS: Emergency Provider Emergency Medicine; PCP Family Medicine
DX: R07.89 Other chest pain (principal); Z87.891 Personal history of nicotine dependence
CPT/HCPCS: 36415; 71045; 80053; 84484; 85025; 85610; 93005; 96372; 99285; J1885